=== PATIENT | female | born 1945 | race Caucasian/White ===

== ENCOUNTER → 2017-09-10 | Outpatient (CLI) | payer MEDICARE, OTHER ==
[~2017-09-10] MED LIST: ALBU8.5H3 INH; AMIO200T2 PO; ASPI-781 PO; ATOR10TA65 PO; CITA10SO PO; CLON1TAB3 PO; FER325 PO; FURO-110 PO; GABA300C PO; LEVO500T10 PO; LOVA20TA PO; METF1000 PO; METO-448 PO; OMEP40CA6 PO; ROPI2TAB3 PO; TRAZ100T15 PO
--- NOTE | 2017-09-10 11:16 | RADRPT ---
PROCEDURE: CT Brain without contrast. CLINICAL INDICATION: Headache TECHNIQUE: A CT of the brain was performed on a multidetector CT scanner utilizing axial imaging f rom the skull base through the vertex without IV contrast. Multiplanar reformatted images were made . Images were reviewed on a PACS workstation. The CTDIvol is 43 mGy and the DLP is the 720 mGycm. One or more of the following dose reduction techniques were utilized: 1.) Automated exposure control 2.) Adjustment of the mA +/- kV according to patient's size 3.) Use of iterative reconstruction technique. COMPARISON: None FINDINGS: There is mild to moderate age appropriate diffuse cerebral volume loss with sulcal and ventricular d ilatation. No discrete extra-axial fluid collection or masses present. The ventricles are in the mid line and of normal contour and configuration. There is periventricular white matter disease in both cerebral hemispheres. No associated mass effect is present. There is preservation of normal hidalgo-whi te discrimination. There is no intracranial hemorrhage. The osseous structures are intact. IMPRESSION: No acute abnormality. No intracranial hemorrhage, mass or acute infarct. Age-appropriate atrophy wit h mild white matter disease compatible with chronic small vessel ischemia. .Mahamed Taveras MD, MD Date Time Electronically viewed and signed by .Mahamed Taveras MD, on 09/10/2017 11:15 .A/
== END | disposition home or self-care (01) ==
LOC: C/S 09:07
PROVIDERS: ATTEND Internal Medicine
DX: R51 Headache (principal)
CPT/HCPCS: 70450

== ENCOUNTER 2018-11-06 13:23 | Inpatient (IN) | payer MEDICARE, OTHER ==
[~2018-11-06] VITALS: Ht 173.7 cm; Wt 108.9 kg
[~2018-11-06 13:23] MED LIST changes: -ALBU8.5H3 INH; +ALBU8.5H8 INH; -AMIO200T2 PO; +AMIO200T4 PO; +CLON1TAB13 PO; -CLON1TAB3 PO; -METF1000 PO; +METF100010 PO; +TRAZ-150 PO; -TRAZ100T15 PO
[2018-11-06] MEDS ORDERED: SOD CHLORIDE 0.9% 500 ML IV STA (13:39)
--- NOTE | 2018-11-06 14:56 | ERD ---
ER Documentation Chief Complaint Chief Complaint bib ra from home for syncope, found on ground prone, cannot remember HPI This is a 73-year-old female here for syncope. The patient apparently called EMS for passing out however she has no recollection of calling them. When EMS arrived they found the patient prone on the ground outside. The patient apparently has multiple cameras set up around the property so EMS reviewed the film and said that showed the patient walking outside and it shows her squatting to her knees and then laying on the ground on her stomach, where she apparently was syncopal and passed out for an unknown duration because it cannot tell how long although she was not moving at all. The patient apparently woke up and called 911. The patient has absolutely no recollection of this incident. She denies no physical complaints other than general malaise ROS All systems reviewed and are negative except as per history of present illness. Medications Home Meds Active Scripts Albuterol Sulfate* (Proair HFA*) 8.5 Gm Hfa.aer.ad, 2 PUFF INH Q6 for SHORTNESS OF BREATH, #1 INHALER Prov:ISABEL MORALEZ NP 09/14/16 Levofloxacin* (Levofloxacin*) 500 Mg Tablet, 500 MG PO DAILY for 10 Days, TAB Prov:ISABEL MORALEZ NP 09/14/16 Furosemide* (Lasix*) 20 Mg Tablet, 20 MG PO BID, #60 TAB Prov:DEENA ALEXANDRE MD 08/04/15 Aspirin* (Ecotrin*) 325 Mg Tabec, 325 MG PO DAILY, #30 TAB 2 Refills Prov:DEENA ALEXANDRE MD 08/04/15 Reported Medications Citalopram Hydrobromide (Citalopram) 10 Mg/5 Ml Solution, 20 MG PO DAILY, #300 ML 09/11/16 Amiodarone Hcl* (Amiodarone Hcl*) 200 Mg Tablet, 200 MG PO BID, #60 TAB 09/11/16 Lovastatin* (Lovastatin*) 20 Mg Tablet, 40 MG PO BID, TAB 09/11/16 Trazodone Hcl* (Desyrel*) 100 Mg Tab, 100 MG PO QHS, #30 TAB 09/11/16 Metoprolol Tartrate* (Lopressor*) 25 Mg Tab, 25 MG PO BID, #60 TAB 09/11/16 Ropinirole Hcl* (Ropinirole Hcl*) 2 Mg Tablet, 2 MG PO QPM, TAB 07/30/15 Atorvastatin Calcium (Atorvastatin Calcium) 10 Mg Tab, 20 MG PO HS, TAB 07/30/15 Omeprazole* (Omeprazole*) 40 Mg Capsule.dr, 40 MG PO DAILY, CAP 06/05/14 Metformin Hcl* (Metformin Hcl*) 1,000 Mg Tablet, 1000 MG PO BID, TAB 06/05/14 Clonazepam* (Clonazepam*) 1 Mg Tablet, 1 MG PO HS, TAB 06/05/14 Discontinued Reported Medications Ferrous Sulfate* (Ferrous Sulfate*) 325 Mg Tabec, 325 MG PO TID, TAB 09/11/16 Gabapentin* (Neurontin*) 300 Mg Capsule, 600 MG PO TID, CAP 07/30/15 Allergies Allergies: Coded Allergies: clindamycin (Verified Allergy, Intermediate, Dizzy, confusion, 11/06/18) Penicillins (Verified Allergy, Unknown, 11/06/18) adhesive (Verified Allergy, Unknown, skin blister, severe rash, 11/06/18) ciprofloxacin (Verified Allergy, Unknown, RASH, 11/06/18) codeine (Verified Allergy, Unknown, TONGUE SWELLS, 11/06/18) meperidine (Verified Allergy, Unknown, TONGUE SWELLS, 11/06/18) phenytoin (Verified Allergy, Unknown, TONGUE SWELLS, 11/06/18) povidone-iodine (Verified Allergy, Unknown, 11/06/18) soap (Verified Allergy, Unknown, 11/06/18) PMhx/Soc History of Surgery: Yes (R TKR,bilat mastectomy,hysterectomy, ) Anesthesia Reaction: No Hx Neurological Disorder: No Hx Respiratory Disorders: No Hx Cardiac Disorders: Yes (AFIB; CHOLESTEROL; HTN) Hx Psychiatric Problems: No Hx Miscellaneous Medical Probl: Yes (PNA,obesity,DM type2,anemia,afib,high cholesterol,) Hx Alcohol Use: Yes Hx Substance Use: No Hx Tobacco Use: No Smoking Status: Never smoker FmHx Family History: No coronary disease Physical Exam Vitals Vital Signs Date Temp Pulse Resp B/P (MAP) Pulse Ox O2 O2 Flow FiO2 Time Delivery Rate 11/06/18 98.1 72 19 179/83 100 Room Air 13:30 (115) 11/06/18 98.1 66 19 183/89 100 13:30 (120) Physical Exam Const: Well-developed, well-nourished Head: Atraumatic, normocephalic, small circular abrasion to forehead Eyes: Normal Conjunctiva, PERRLA, EOMI, normal sclera, no nystagmus ENT: Normal External Ears, Nose and Mouth, moist mucus membranes. Neck: Full range of motion. No meningismus, no lymphadenopathy. Resp: Clear to auscultation bilaterally, no wheezing, rhonchi, rales Cardio: Regular rate and rhythm, no murmurs, S1 S2 present Abd: Soft, non tender x 4, non distended. Normal bowel sounds, no guarding or rebound, no pulsitile abdominal masses or bruits Skin: No petechiae or rashes, no ecchymosis , no maculopapular rash Back: No midline or flank tenderness Ext: No cyanosis, or edema, FROM x 4, normal inspection, neurovascularly intact x 4 Neur: Awake and alert, STR 5/5 x 4, sensation intact x 4, no focal findings, cerebellum intact Psych: Normal Mood and Affect Result Diagram: 11/06/18 1357 11/06/18 1357 Results 24 hrs Laboratory Tests Test 11/06/18 13:57 White Blood Count 6.0 10^3/ul Red Blood Count 4.36 10^6/ul Hemoglobin 12.8 g/dl Hematocrit 38.8 % Mean Corpuscular Volume 89.0 fl Mean Corpuscular Hemoglobin 29.4 pg Mean Corpuscular Hemoglobin Concent 33.0 g/dl Red Cell Distribution Width 12.8 % Platelet Count 222 10^3/UL Mean Platelet Volume 9.3 fl Immature Granulocytes % 0.500 % Neutrophils % 59.6 % Lymphocytes % 30.1 % Monocytes % 6.8 % Eosinophils % 2.5 % Basophils % 0.5 % Nucleated Red Blood Cells % 0.0 /100WBC Immature Granulocytes # 0.030 10^3/ul Neutrophils # 3.6 10^3/ul Lymphocytes # 1.8 10^3/ul Monocytes # 0.4 10^3/ul Eosinophils # 0.2 10^3/ul Basophils # 0.0 10^3/ul Nucleated Red Blood Cells # 0.0 10^3/ul Prothrombin Time 12.3 Sec Prothrombin Time Ratio 1.0 INR International Normalized Ratio 0.91 Activated Partial Thromboplast Time 30.6 Sec Sodium Level 141 mmol/L Potassium Level 4.4 mmol/L Chloride Level 101 mmol/L Carbon Dioxide Level 31 mmol/L Anion Gap 9 Blood Urea Nitrogen 13 mg/dl Creatinine 0.75 mg/dl Est Glomerular Filtrat Rate mL/min mL/min Glucose Level 238 mg/dl Calcium Level 9.9 mg/dl Troponin I < 0.012 ng/ml Current Medications Medications Dose Sig/Mary Start Time Status Last (Trade) Ordered Route PRN Stop Time Admin Dose Reason Admin Sodium 500 ml @ Q1H STAT 11/06/18 DC 11/06/18 Chloride 500 mls/hr IV 13:39 14:03 11/06/18 14:38 Procedures/MDM EKG: Rate/Rhythm: Normal sinus rhythm, right bundle branch block, LVH QRS, ST, QT: NORMAL PA, QRS, QT] Impression: Abnormal EKG Ordering MD: MELINDA LEE DO Location: E/R Room/Bed: PROCEDURE: CT Brain without contrast. CLINICAL INDICATION: Altered mental status, fall TECHNIQUE: A CT of the brain was performed on a multi-slice CT scanner utiliz ing axial imaging from the skull base through the vertex without IV contrast. Multiplanar reformatted images were made. Images were reviewed on a PACS workstation. The CTDIvol is 38.6 mGy and the DLP is 634.2 mGycm. One or more of the following dose reduction techniques were used: Automated exposure control. Adjustment of the mA and/or kV according to patient's size. Use of iterative reconstruction technique. DICOM images are available. COMPARISON: 09/10/2017 FINDINGS: The sulcal gyral pattern is unremarkable without evidence of effacement. The hidalgo-white matter differentiation is intact. There are mild to moderate deep white matter ischemic changes. No masses, edema or shift is identified. There are no intraparenchymal or extraaxial fluid collections. The visualized paranasal sinuses and mastoid air cells are well-aerated. The skull base and calvarium are intact. IMPRESSION: 1. No acute intracranial abnormalities are identified. 2. There are mild to moderate deep white matter ischemic changes. RPTAT:AAJJ Toro Steele, Physician Date Time Electronically viewed and signed by Toro Steele Physician on 11/06/2018 14:24 MC/ CC: MELINDA LEE DO [id number] MR #: [id number] DOS: 11/06/18 1339 Ordering MD: MELINDA LEE DO Location: E/R Room/Bed: PROCEDURE: XR Chest. CLINICAL INDICATION: Shortness of breath, syncope TECHNIQUE: A frontal view of the chest was performed. COMPARISON: September 14, 2016 FINDINGS: The cardiomediastinal silhouette is within normal limits. There is a stable left subclavian dual chambered cardiac pacer. The lungs are clear. No signs of pleural fluid or pneumothorax are seen. The osseous structures and soft tissues are unremarkable. IMPRESSION: No evidence for active cardiopulmonary disease. Cardiac pacer. No interval change. RPTAT: EE .Harriet Duvall MD, Date Time Electronically viewed and signed by .Harriet Duvall MD, on 11/06/2018 14:33 .F/ CC: MELINDA LEE DO [id number] Patient's syncopal symptoms are unstable at this time and require inpatient workup. No evidence of PE or dissection at this time but occult ischemia or fatal dysrhythmia cannot be ruled out. Departure Diagnosis: Primary Impression: Syncope Syncope type: unspecified Qualified Codes: R55 - Syncope and collapse Condition: Stable MELINDA LEE DO Nov 06, 2018 14:56
[2018-11-06] MEDS ORDERED: ACETAMINOPHEN 325 MG TAB PO PRN ×2 (16:00→16:30)
[2018-11-06] MEDS ORDERED: ONDANSETRON 4 MG INJ IV PRN ×2 (16:00→16:30)
[2018-11-06] MEDS ORDERED: NACL 0.9% 3 ML SYG IV SCH (16:30)
[2018-11-06] MEDS ORDERED: DOCUSATE SODIUM 100 MG CAP PO PRN (16:30)
[2018-11-06] MEDS ORDERED: MAGNESIUM HYDROXIDE 30ML CUP PO PRN (16:30)
--- NOTE | 2018-11-06 16:35 | HP ---
Date/Time of Note Date/Time of Note DATE: 11/06/18 TIME: 16:26 Assessment/Plan VTE Prophylaxis SCD applied (from Nsg): Yes Pharmacological prophylaxis: apixaban Lines/Catheters IV Catheter Type (from Nrsg): Saline Lock Assessment/Plan Assessment/Plan 1. Acute syncopal episode - Patient does not remember loosing consciousness or calling EMS - CT head negative for acute issues but will need to monitor closely given patient on Eliquis with possible head trauma given presence of forehead abrasion. Will need to repeat CT scan if any change in mentation noted - Will check ECHO and carotids. Pt rate controlled when presented to ED - Cardiology consulted for further recommendations - will continue monitoring vitals 2. Urinary incontinence - will check UA to rule out infectious cause 3. Afib - continue home medications - On eliquis - follows with Dr. Hoffman as outpatient 4. DM - Will check A1c - discussed holding metformin - ISS and accuchecks 5. HTN - continue home medications and adjust as needed 6. non hodgkins lymphoma of skin - per patient, being monitored and not receiving any active treatment 7. h/o breast ca s/p bilateral mastectomy, chemo, and radiation - stable 8. obesity - lifestyle modification 9. Gi ppx - PPI 10. DVT ppx - Eliquis 11. Disposition - Admit to telemetry for syncopal workup Result Diagram: 11/06/18 1357 11/06/18 1357 Results 24hrs Laboratory Tests Test 11/06/18 13:57 White Blood Count 6.0 Red Blood Count 4.36 # Hemoglobin 12.8 # Hematocrit 38.8 # Mean Corpuscular Volume 89.0 Mean Corpuscular Hemoglobin 29.4 Mean Corpuscular Hemoglobin Concent 33.0 Red Cell Distribution Width 12.8 Platelet Count 222 Mean Platelet Volume 9.3 # Immature Granulocytes % 0.500 H Neutrophils % 59.6 Lymphocytes % 30.1 Monocytes % 6.8 Eosinophils % 2.5 Basophils % 0.5 Nucleated Red Blood Cells % 0.0 Immature Granulocytes # 0.030 Neutrophils # 3.6 Lymphocytes # 1.8 Monocytes # 0.4 Eosinophils # 0.2 Basophils # 0.0 Nucleated Red Blood Cells # 0.0 Prothrombin Time 12.3 Prothrombin Time Ratio 1.0 INR International Normalized Ratio 0.91 Activated Partial Thromboplast Time 30.6 Sodium Level 141 Potassium Level 4.4 Chloride Level 101 Carbon Dioxide Level 31 Anion Gap 9 Blood Urea Nitrogen 13 Creatinine 0.75 Est Glomerular Filtrat Rate mL/min Glucose Level 238 H Calcium Level 9.9 Troponin I < 0.012 HPI/ROS Admit Date/Time Admit Date/Time 10/27/18 1600 Hx of Present Illness 73 yo F with PMH atrial fib with pacer, HTN, diabetes mellitus, non hodgkins lymphoma, obesity, and breast cancer s/p b/l mastectomy, chemo, radiation presented to ED after loss of consciousness. Patient states she remembers looking at her sarah bushes and then next thing she knows she was face down with EMS around her. Per patient, EMS was called from her phone but she does not remember events leaving up to episode. Patient has cameras around her house and when the video was reviewed, it showed the patient walking outside, squatting to her knees then laid on ground on her stomach, then syncopized. Patient is complaining of a severe headache, pain in left knee, and ringing in ears. Denies any chest pain, palpitations, dizziness, nausea, vomiting, shortness of breath, abdominal pain, constipation or diarrhea. Does admit to urinary incontinence for the past 2 weeks and has needed to wear depends. Patient is followed by Dr. Hoffman as outpatient and states she sees him every 6 months. ROS All 12 systems reviewed and pertinent positives as per HPI. All others negative. Constitutional: No fatigue, No nausea Eyes: No discharge ENT: No congestion Respiratory: No cough, No shortness of breath, No sputum, No wheezing Cardiovascular: No chest pain, No edema, No lightheadedness, No palpitations Gastrointestinal: No pain, No constipation, No diarrhea, No nausea, No vomiting Genitourinary: other (incontinence) Musculoskeletal: bone/joint pain (left knee pain) Skin: other (abrasion forehead) Neurologic: headache, syncope; No confusion, No dizziness, No focal-weakness Endocrine: no complaints Lymphatic: no complaints Psychological: nl mood/affect Immunologic: no complaints PMH/Family/Social Past Medical History Medical History: diabetes, hypertension, other (atrial fibrillation, breast cancer s/p mastectomy, chemo, radiation, NHL skin) Medications Current Medications Ondansetron HCl (Zofran Inj) 4 mg ER BRIDGE PRN IV NAUSEA AND/OR VOMITING; Sta rt 11/06/18 at 16:00; Stop 11/07/18 at 15:59 Acetaminophen (Tylenol Tab) 650 mg ER BRIDGE PRN PO MILD PAIN(1-3)OR ELEVATED TEMP; Start 11/06/18 at 16:00; Stop 11/07/18 at 15:59 Coded Allergies: clindamycin (Verified Allergy, Intermediate, Dizzy, confusion, 11/06/18) Penicillins (Verified Allergy, Unknown, 11/06/18) adhesive (Verified Allergy, Unknown, skin blister, severe rash, 11/06/18) ciprofloxacin (Verified Allergy, Unknown, RASH, 11/06/18) codeine (Verified Allergy, Unknown, TONGUE SWELLS, 11/06/18) meperidine (Verified Allergy, Unknown, TONGUE SWELLS, 11/06/18) phenytoin (Verified Allergy, Unknown, TONGUE SWELLS, 11/06/18) povidone-iodine (Verified Allergy, Unknown, 11/06/18) soap (Verified Allergy, Unknown, 11/06/18) Past Surgical History Past Surgical Hx: appendectomy, cholecystectomy, other (mastectomy, hysterectomy, L knee, R knee replacement, 13 surgeries left foot) Family History Significant Family History: no pertinent family hx Social History Alcohol Use: none Smoking Status: Never smoker Drug Use: none Exam/Review of Systems Vital Signs Vitals Vital Signs Date Temp Pulse Resp B/P (MAP) Pulse Ox O2 O2 Flow FiO2 Time Delivery Rate 11/06/18 98.1 72 19 179/83 100 Room Air 13:30 (115) Exam Exam General: Patient is a pleasant. currently lying in bed in no acute distress. answering questions appropriately HEENT: Normocephalic. abrasion on forehead The pupils are equal, round and reactive. Extraocular motor are intact Neck: Supple with full range of motion. No rigidity or meningismus Chest: Nontender Lungs: clear bilaterally, nonlabored breathing, no wheezing or rhonchi appreciated Heart: S1, S2, regular rate and rhythm. no murmurs Abdomen: Soft , nontender, nondistended , bowel sounds are present. No guarding no rebound tenderness , No masses or organomegaly. No costovertebral temporal angle mass Extremities: Normal to inspection, no edema no cyanosis. Neurologic: Normal mental status, speech normal, cranial nerves II through XII are intact, motor and sensory are intact, no focal weakness Skin: abrasion left knee Additional Comments Home medications reviewed Imaging: PROCEDURE: XR Chest. CLINICAL INDICATION: Shortness of breath, syncope TECHNIQUE: A frontal view of the chest was performed. COMPARISON: September 14, 2016 FINDINGS: The cardiomediastinal silhouette is within normal limits. There is a stable left subclavian dual chambered cardiac pacer. The lungs are clear. No signs of pleural fluid or pneumothorax are seen. The osseous structures and soft tissues are unremarkable. IMPRESSION: No evidence for active cardiopulmonary disease. Cardiac pacer. No interval change. RPTAT: EE .Harriet Duvall MD, Date Time Electronically viewed and signed by .Harriet Duvall MD, on 11/06/2018 14:33 PROCEDURE: CT Brain without contrast. CLINICAL INDICATION: Altered mental status, fall TECHNIQUE: A CT of the brain was performed on a multi-slice CT scanner [employer] ng axial imaging from the skull base through the vertex without IV contrast. Multiplanar reformatted images were made. Images were reviewed on a PACS workstation. The CTDIvol is 38.6 mGy and the DLP is 634.2 mGycm. One or more of the following dose reduction techniques were used: Automated exposure control. Adjustment of the mA and/or kV according to patient's size. Use of iterative reconstruction technique. DICOM images are available. COMPARISON: 09/10/2017 FINDINGS: The sulcal gyral pattern is unremarkable without evidence of effacement. The hidalgo-white matter differentiation is intact. There are mild to moderate deep white matter ischemic changes. No masses, edema or shift is identified. There are no intraparenchymal or extraaxial fluid collections. The visualized paranasal sinuses and mastoid air cells are well-aerated. The skull base and calvarium are intact. IMPRESSION: 1. No acute intracranial abnormalities are identified. 2. There are mild to moderate deep white matter ischemic changes. RPTAT:AAJJ Toro Steele, Physician Date Time Electronically viewed and signed by Toro Steele, Physician on 11/06/2018 14:24 KERLINE SPIVEY MD Nov 06, 2018 16:35
--- NOTE | 2018-11-06 16:57 | CONDCODE ---
Medicare Criteria-> INP to OBS Patient still in hospital: Yes Medicare Inp->Obs Criteria met: Yes I personally scribed for KERLINE SPIVEY MD ([facility]) on 11/06/18 at 16:57. Electronically submitted by Nicole Piña ([facility]). KERLINE SPIVEY MD Nov 06, 2018 16:57
[2018-11-06] MEDS: HYDROCODONE/APAP (5/325) TAB PO PRN ×2 (16:59→22:18)
[2018-11-06] MEDS ORDERED: DEXTROSE 50% 50 ML SYRINGE IV PRN ×2 (18:00)
[2018-11-06] MEDS ORDERED: GLUCAGON 1 MG INJ IM PRN (18:00)
[2018-11-06] MEDS ORDERED: GLUCOSE GEL 15 GRAM TUBE PO PRN ×2 (18:00)
[2018-11-06] MEDS ORDERED: GLUCOSE GEL 15 GRAM TUBE BUCCAL PRN (18:00)
[2018-11-06] MEDS ORDERED: hydrALAzine 20 MG INJ IV PRN (19:00)
[2018-11-06 20:00] VITALS: PULSE 81
[2018-11-06] MEDS: ALBUTEROL HFA 8 GM INHALER INH SCH ×2 (20:00→20:48)
[2018-11-06 20:12] VITALS: BP 146/67; PULSE 72; RESP 20
[2018-11-06] MEDS: FUROSEMIDE 20 MG TAB PO SCH (20:48)
[2018-11-06] MEDS: INSULIN ASPART [NOVOLOG] 3 ML PEN SC SCH ×2 (21:00→23:30)
[2018-11-06] MEDS: clonAZEPAM 0.5 MG TAB PO SCH (21:20)
[2018-11-06] MEDS: traZODone 100 MG TAB PO SCH (21:21)
[2018-11-06] MEDS: AMIODARONE 200 MG TAB PO SCH (21:21)
[2018-11-06] MEDS: ATORVASTATIN 20 MG TAB PO SCH (21:21)
[2018-11-06] MEDS: METOPROLOL 25 MG TAB PO SCH (21:22)
[2018-11-06] MEDS: APIXABAN 5 MG TABLET PO SCH (21:22)
[2018-11-06] MEDS: ROPINIROLE 1 MG TAB PO SCH (22:18)
[2018-11-06 23:34] VITALS: BP 132/63; PULSE 60; RESP 18
[2018-11-07] VITALS (11 sets, daily range): BP systolic 131–170; BP diastolic 68–95; PULSE 60–89; RESP 16–20
--- NOTE | 2018-11-07 00:57 | CONS ---
DATE OF ADMISSION: 11/06/2018 DATE OF CONSULTATION: 11/06/2018 REASON FOR CONSULTATION: Syncope, assess for cardiac etiology. REQUESTING PHYSICIAN: Dr. Lama from the hospitalist service. HISTORY OF PRESENT ILLNESS: Ms. Rodriguez is a 73-year-old female with a history of atrial fibrillation s tatus post permanent pacemaker, hypertension, diabetes mellitus, non-Hodgkin lymphoma, obesity, breas t CA status post chemo and radiation, who presents status post syncopal episode. Per patient, she wa s in her usual state of health and was outside and went to smell the roses, and the next thing she kn ows she was on the ground and paramedics were asking her questions. The patient denied any prodrome of chest pain, dizziness, palpitations, shortness of breath prior to passing out. Upon arrival, temp erature was 98.1, blood pressure markedly elevated at 183/89, pulse 66, respiratory rate 19, satting 100%. The patient's labs revealed a white count 6.0, a hemoglobin of 12.8, a platelet count of 222. Sodium 141, potassium 4.4, creatinine of 0.7, BUN 13. Troponin negative. Glucose 238. INR 0.91. The patient underwent a chest x-ray revealing no evidence of acute cardiopulmonary abnormalities, and a head CT that revealed no acute intracranial abnormalities, mild to moderate deep white matter isch emic changes. The patient subsequently now waits admit to the floor. PAST MEDICAL HISTORY: As above in the HPI. MEDICATIONS CURRENTLY IN HOSPITAL: 1. Aspirin 325 mg daily. 2. Celexa. 3. Protonix 40 mg daily. 4. ____ b.i.d. 5. Lipitor 20 mg at bedtime. 6. Klonopin 1 mg at bedtime. 7. Metoprolol 25 mg p.o. b.i.d. 8. Trazodone 100 mg at bedtime. 9. Eliquis 5 mg p.o. b.i.d. 10. Albuterol p.r.n. 11. Lasix 20 mg p.o. b.i.d. 12. Insulin sliding scale. 13. Tylenol p.r.n. 14. [place] p.r.n. 15. Colace p.r.n. 16. Zofran p.r.n. 17. Tylenol p.r.n. ALLERGIES: TO CIPROFLOXACIN, CLINDAMYCIN AND MEPERIDINE. SOCIAL HISTORY: No current tobacco, ETOH or illicit drug use. FAMILY HISTORY: No history of sudden cardiac or early CAD. REVIEW OF SYSTEMS: As above in the HPI. CONSTITUTIONAL: No fevers, chills. PULMONARY: No current shortness of breath. CARDIOVASCULAR: Atrial fibrillation. GASTROINTESTINAL: No vomiting. GENITOURINARY: No hematuria. MUSCULOSKELETAL: Degenerative joint disease. PSYCHIATRIC: The patient denies depression. NEUROLOGIC: No documented history of CVA. ENDOCRINE: Diabetes mellitus. PHYSICAL EXAMINATION: VITAL SIGNS: Temperature of 98.1, blood pressure 159/82, pulse 81, respiratory rate 19, satting 100% . GENERAL: The patient is alert, awake, in no acute distress. NECK: JVP approximately 8 to 9 cm of water. CHEST: Fair air movement throughout. HEART: Regular rate and rhythm. Normal S1 and S2. A I/ systolic murmur. Nondisplaced PMI. ABDOMEN: Positive bowel sounds, soft. EXTREMITIES: No significant pitting edema, 1+ pulses bilaterally posterior tibial. LABORATORY DATA: Most recently from today, no further labs for my review at this time. IMAGING STUDIES: As above in the HPI. No further imaging studies for my review at this time. ELECTROCARDIOGRAM: No electrocardiograms for my review at this time. IMPRESSION: 1. Syncope, assess for cardiac etiology. 2. Paroxysmal atrial fibrillation. 3. Permanent pacemaker, assess function. 4. Dyslipidemia. 5. Hypertension. 6. History of breast cancer status post mastectomy and chemotherapy. 7. Possible anxiety by medications. RECOMMENDATIONS: 1. At this time would admit patient to telemetry monitoring to follow rhythm and rate control and ru le out any arrhythmic cause of the patient's fall. 2. We will complete a rule out for myocardial infarction to ensure the patient's constellation of sy mptoms are not the result of acute coronary syndromes, acute myocardial infarction. 3. Check a 2D echo for this patient's ejection fraction, wall motion or any major abnormalities. 4. Continue the patient's baseline beta carmelita and amiodarone in an attempt to maintain sinus rhyth m. 5. Check a baseline EKG now and repeat EKG in the morning to assess for baseline rhythm and then for any changes thereafter. 6. Continue the patient's Eliquis for prevention of thromboembolic complications in the setting of a trial fibrillation. 7. Follow the patient's volume status on Lasix closely. 8. Follow the patient's blood sugars closely on insulin. 9. ____ the patient's aspirin. We will change to baby aspirin to decrease bleeding risk as the liyah ent is already on Eliquis. 10. Additionally check orthostatics to ensure that orthostasis did not contribute to the patient's f all. Thank you for allowing me to take part in the care of this patient. I will continue to follow her ve ry closely with you with recommendations to be made as the patient progresses through her inpatient h ospital course. Dictated By: PRITESH WHITE/GINETTE Conf#: [id number] DID#: [id number] CC: KERLINE LAMA MD;*EndCC*
[2018-11-07] MEDS: ALBUTEROL HFA 8 GM INHALER INH SCH ×4 (02:00→20:00)
[2018-11-07] MEDS: HYDROCODONE/APAP (5/325) TAB PO PRN (04:17)
--- NOTE | 2018-11-07 05:22 | NUR ---
Notified Dr. Hardin hat pt c/o of severe headache 08/18. [place] was given 40min ago with no relieved. Obtain an order for Dilaudid 0.2mg Iv x once. Dr Hardin stated that he will place an order for stat CT of the brain. Previous Ct showed no was negative for acute issues and NIH is 0. No changes on neurological status. Will continue monitor pt closely
[2018-11-07] MEDS ORDERED: HYDROmorphONE 0.5 MG/0.5 ML SYG IV ONE (05:23)
[2018-11-07] MEDS: FUROSEMIDE 20 MG TAB PO SCH ×2 (05:32→18:00)
[2018-11-07] MEDS: PANTOPRAZOLE (EC) 40 MG TAB PO SCH (05:35)
--- NOTE | 2018-11-07 07:13 | NUR ---
EOSS Pt. AAO x4. No s/s of respiratory distress. pt states that she uses oxygen only at night.Continue to monitor headache. CT-brain was negative for acute abnormality but pt still complaining of headache 05/18. Dr. Hardin notified of the results and pt c/o headache/ Dr Hardin placed an order for Excedrin. Endorsed given Reina YANG to administered medication.,
[2018-11-07] MEDS: AMIODARONE 200 MG TAB PO SCH ×2 (08:21→21:02)
[2018-11-07] MEDS: ASPIRIN (EC) 325 MG TAB PO SCH (08:22)
[2018-11-07] MEDS: APIXABAN 5 MG TABLET PO SCH ×2 (08:22→21:02)
[2018-11-07] MEDS: CITALOPRAM 20 MG TAB PO SCH (08:22)
[2018-11-07] MEDS: METOPROLOL 25 MG TAB PO SCH ×2 (08:22→21:03)
[2018-11-07] MEDS ORDERED: ASA/ACETAMINOPHEN/CAFF TAB PO ONE (08:30)
[2018-11-07] MEDS: INSULIN ASPART [NOVOLOG] 3 ML PEN SC SCH ×4 (08:30→21:14)
[2018-11-07] MEDS ORDERED: HYDROmorphONE 0.5 MG/0.5 ML SYG IV STA (09:37)
--- NOTE | 2018-11-07 13:23 | PN ---
Date/Time of Note Date/Time of Note DATE: 11/07/18 TIME: 13:22 Assessment/Plan VTE Prophylaxis Risk score (from Nsg)>0 risk: 5 SCD applied (from Nsg): Yes Pharmacological prophylaxis: apixaban Lines/Catheters IV Catheter Type (from [facility]): Peripheral IV Urinary Cath still in place: No Assessment/Plan Hospital Course SUBJECTIVE: Denies any ringing in the ears. Complains of headache. OBJECTIVE: Physical Exam General: Obese, 71 year-old female lying in bed in no apparent distress. HEENT: Normocephalic, atraumatic. Eyes: Anicteric sclerae, conjunctivae clear. E NT: Nasal septum midline, oral mucosa moist. Neck supple, no JVD noticed. Respiratory: Bilaterally clear breath sounds. No use of accessory muscles of respiration. No adventitious breath sounds. Cardiovascular: S1, S2 heard. Irregularly, irregular rhythm. Abdomen: Soft, nontender, and nondistended. Bowel sounds positive in all 4 quadrants. Genitourinary: Deferred. Extremities: No cyanosis, no clubbing, no edema. Peripheral pulses palpable. Neurologic: Cranial nerves II through XII grossly intact. The patient is awake, alert, and oriented. Skin: Normal skin turgor. No skin rashes. Labs & Vitals per chart ASSESSMENT & PLAN This is a 73-year-old female with comorbidities including hypertension, diabetes mellitus type 2, atrial fibrillation on anticoagulation, dyslipidemia, non- Hodgkin's lymphoma of the skin, history of breast cancer status post bilateral mastectomy, and obesity, who was brought to the emergency room status post syncopal episode at home. The patient was admitted to inpatient setting for further treatment and evaluation. 1. Syncope. -Continue telemetry monitoring. -Brain CT negative. -Pending 2D echocardiogram. -Carotid Doppler study negative for any hemodynamically significant stenosis. -Cardiology evaluation ongoing. 2. Cephalgia. -Etiology unclear. -Continue PRN medications. -Trial of ergot alkaloids. 3. Atrial fibrillation. -Continue amiodarone and Lopressor. -On apixaban for stroke prophylaxis. 4. Diabetes mellitus type 2. -Hemoglobin A1c 8.4. -Continue sliding scale insulin. 5. Hypertension. -Continue antihypertensives. 6. History of breast cancer. -Status post bilateral mastectomy, chemo, and radiation. 7. Non-Hodgkin's lymphoma of the skin. -Not active. 8. Obesity. -BMI 36. -Advised weight reduction. 9. DVT prophylaxis. -Factor Xa inhibitors. 10. Plan. -Continue telemetry monitoring. -Await 2D echocardiogram. -Fioricet for head ache. -PT evaluation. -Replete magnesium. The patient was seen in collaboration with Dr. Lama. Result Diagram: 11/07/18 0553 11/07/18 0553 Results 24hrs Laboratory Tests Test 11/06/18 13:39 11/06/18 13:57 11/06/18 20:20 11/06/18 21:29 Hemoglobin A1c 8.4 H White Blood 6.0 Count Red Blood Count 4.36 # Hemoglobin 12.8 # Hematocrit 38.8 # Mean Corpuscular 89.0 Volume Mean Corpuscular 29.4 Hemoglobin Mean Corpuscular 33.0 Hemoglobin Tammy nt Red Cell 12.8 Distribution Width Platelet Count 222 Mean Platelet 9.3 # Volume Immature 0.500 H Granulocytes % Neutrophils % 59.6 Lymphocytes % 30.1 Monocytes % 6.8 Eosinophils % 2.5 Basophils % 0.5 Nucleated Red 0.0 Blood Cells % Immature 0.030 Granulocytes # Neutrophils # 3.6 Lymphocytes # 1.8 Monocytes # 0.4 Eosinophils # 0.2 Basophils # 0.0 Nucleated Red 0.0 Blood Cells # Prothrombin Time 12.3 Prothrombin Time 1.0 Ratio INR 0.91 International Normalized Ratio Activated 30.6 Partial Thrombop last Time Sodium Level 141 Potassium Level 4.4 Chloride Level 101 Carbon Dioxide 31 Level Anion Gap 9 Blood Urea 13 Nitrogen Creatinine 0.75 Est Glomerular Filtrat Rate mL/min Glucose Level 238 H Calcium Level 9.9 Troponin I < 0.012 < 0.012 Bedside Glucose 195 Test 11/07/18 00:42 11/07/18 05:53 11/07/18 08:15 11/07/18 12:02 Troponin I < 0.012 < 0.012 White Blood 5.9 Count Red Blood Count 4.02 L Hemoglobin 11.9 L Hematocrit 35.3 L Mean Corpuscular 87.8 Volume Mean Corpuscular 29.6 Hemoglobin Mean Corpuscular 33.7 Hemoglobin Tammy nt Red Cell 13.0 Distribution Width Platelet Count 198 Mean Platelet 9.0 Volume Immature 0.500 H Granulocytes % Neutrophils % 63.4 Lymphocytes % 25.9 Monocytes % 7.3 Eosinophils % 2.4 Basophils % 0.5 Nucleated Red 0.0 Blood Cells % Immature 0.030 Granulocytes # Neutrophils # 3.7 Lymphocytes # 1.5 Monocytes # 0.4 Eosinophils # 0.1 Basophils # 0.0 Nucleated Red 0.0 Blood Cells # Sodium Level 139 Potassium Level 4.1 Chloride Level 103 Carbon Dioxide 29 Level Anion Gap 7 Blood Urea 13 Nitrogen Creatinine 0.70 Est Glomerular Filtrat Rate mL/min Glucose Level 202 Calcium Level 9.9 Magnesium Level 1.3 L Thyroid 4.530 Stimulating Hormone (TSH) Bedside Glucose 200 206 Exam/Review of Systems Vital Signs Vitals Vital Signs Date Temp Pulse Resp B/P (MAP) Pulse Ox O2 O2 Flow FiO2 Time Delivery Rate 11/07/18 61 12:08 11/07/18 2.0 12:07 11/07/18 97.6 16 170/73 95 Room Air 11:56 (105) Intake and Output 11/06/18 11/06/18 11/07/18 1515:00 23:00 07:00 IntakeIntake Total 700 ml BalanceBalance 700 ml Medications Medications Current Medications Albuterol (Ventolin Hfa) 2 puff Q6H RESP THERAPY INH Last administered on 11/07/18 08:31; Admin Dose 2 PUFF; Start 11/06/18 at 18:00 Amiodarone HCl (Cordarone) 200 mg BID PO Last administered on 11/07/18 08:21; Admin Dose 200 MG; Start 11/06/18 at 21:00 Aspirin (Ecotrin) 325 mg DAILY PO Last administered on 11/07/18 08:22; Admin Dose 325 MG; Start 11/07/18 at 09:00 Atorvastatin Calcium (Lipitor) 20 mg HS PO Last administered on 11/06/18 21:21; Admin Dose 20 MG; Start 11/06/18 at 21:00 Clonazepam (Klonopin) 1 mg HS PO Last administered on 11/06/18 21:20; Admin Dose 1 MG; Start 11/06/18 at 21:00 Furosemide (Lasix) 20 mg BID DIURETICS PO ; Start 11/06/18 at 18:00 Metoprolol Tartrate (Lopressor) 25 mg BID PO Last administered on 11/07/18 08:22; Admin Dose 25 MG; Start 11/06/18 at 21:00 Ropinirole HCl (Requip) 2 mg QPM PO Last administered on 11/06/18at 22:18; Admin Dose 2 MG; Start 11/06/18 at 21:00 Trazodone HCl (Desyrel) 100 mg QHS PO Last administered on 11/06/18at 21:21; Admin Dose 100 MG; Start 11/06/18 at 21:00 Citalopram Hydrobromide (Celexa) 20 mg DAILY PO Last administered on 11/07/18at 08:22; Admin Dose 20 MG; Start 11/07/18 at 09:00 Pantoprazole (Protonix Tab) 40 mg DAILY@06 PO Last administered on 11/07/18at 05:35; Admin Dose 40 MG; Start 11/07/18 at 06:00 IV Flush (NS 3 ml) 3 ml PER PROTOCOL IV ; Start 11/06/18 at 16:30 Ondansetron HCl (Zofran Inj) 4 mg Q6H PRN IV NAUSEA AND/OR VOMITING; Start 11/06/18 at 16:30 Acetaminophen (Tylenol Tab) 650 mg Q6H PRN PO PAIN LEVEL 1-3 OR FEVER Last administered on 11/06/18at 18:40; Admin Dose 650 MG; Start 11/06/18 at 16:30 Acetaminophen/ Hydrocodone Bitart ([place] (5/325)) 1 tab Q6H PRN PO PAIN LEVEL 4-6 Last administered on 11/07/18at 04:17; Admin Dose 1 TAB; Start 11/06/18 at 16:30 Docusate Sodium (Colace) 100 mg Q12H PRN PO CONSTIPATION; Start 11/06/18 at 16:30 Magnesium Hydroxide (Milk Of Mag) 30 ml DAILY PRN PO CONSTIPATION; Start 11/06/18 at 16:30 Apixaban (Eliquis) 5 mg BID PO Last administered on 11/07/18at 08:22; Admin Dose 5 MG; Start 11/06/18 at 21:00 Insulin Aspart (Novolog Insulin Pen) NOVOLOG *MILD* ALGORITHM WITH MEALS BEDTIME SC Last administered on 11/07/18at 12:14; Admin Dose 2 UNIT; Start at 18:00 Miscellaneous Information 1 ea NOTE XX ; Start 11/06/18 at 18:00 Glucose (Glutose) 15 gm Q15M PRN PO DECREASED GLUCOSE; Start 11/06/18 at 18:00 Glucose (Glutose) 22.5 gm Q15M PRN PO DECREASED GLUCOSE; Start 11/06/18 at 18:00 Dextrose (D50w Syringe) 25 ml Q15M PRN IV DECREASED GLUCOSE; Start 11/06/18 at 18:00 Dextrose (D50w Syringe) 50 ml Q15M PRN IV DECREASED GLUCOSE; Start 11/06/18 at 18:00 Glucagon (Glucagen) 1 mg Q15M PRN IM DECREASED GLUCOSE; Start 11/06/18 at 18:00 Glucose (Glutose) 15 gm Q15M PRN BUCCAL DECREASED GLUCOSE; Start 11/06/18 at 18:00 Hydralazine HCl (Apresoline) 10 mg Q4H PRN IV SBP >170; Start 11/06/18 at 19:00 Magnesium Sulfate 3 gm/Dextrose 106 ml @ 35.333 mls/ hr ONCE ONCE IVPB ; Start 11/07/18 at 13:30; Stop 11/07/18 at 16:29; Status HARJIT CUEVAS NP Nov 07, 2018 13:23
[2018-11-07] MEDS ORDERED: SUMATRIPTAN 6 MG/0.5 ML INJ SC ONE (13:30)
--- NOTE | 2018-11-07 14:12 | CONS ---
Date/Time of Note Date/Time of Note DATE: 11/07/18 TIME: 14:05 Assessment/Plan Assessment/Plan Hospital Course IMPRESSION: 1. Syncope, assess for cardiac etiology.-neg trop x 3 2. Paroxysmal atrial fibrillation. 3. Permanent pacemaker, assess function. 4. Dyslipidemia. 5. Hypertension. 6. History of breast cancer status post mastectomy and chemotherapy. 7. Possible anxiety by medications. 8. Hypomagnesemia Recc: -Tele -will have PPM interogated -Continue asa/eliquis -Continue amio -Continue statin -Continue lasix and follow volume status closley -Continue BB -start ACEI Result Diagram: 11/07/18 0553 11/07/18 0553 Results 24hrs Laboratory Tests Test 11/06/18 20:20 11/06/18 21:29 11/07/18 00:42 11/07/18 05:53 Troponin I < 0.012 < 0.012 < 0.012 Bedside Glucose 195 White Blood 5.9 Count Red Blood Count 4.02 L Hemoglobin 11.9 L Hematocrit 35.3 L Mean Corpuscular 87.8 Volume Mean Corpuscular 29.6 Hemoglobin Mean Corpuscular 33.7 Hemoglobin Tammy nt Red Cell 13.0 Distribution Width Platelet Count 198 Mean Platelet 9.0 Volume Immature 0.500 H Granulocytes % Neutrophils % 63.4 Lymphocytes % 25.9 Monocytes % 7.3 Eosinophils % 2.4 Basophils % 0.5 Nucleated Red 0.0 Blood Cells % Immature 0.030 Granulocytes # Neutrophils # 3.7 Lymphocytes # 1.5 Monocytes # 0.4 Eosinophils # 0.1 Basophils # 0.0 Nucleated Red 0.0 Blood Cells # Sodium Level 139 Potassium Level 4.1 Chloride Level 103 Carbon Dioxide 29 Level Anion Gap 7 Blood Urea 13 Nitrogen Creatinine 0.70 Est Glomerular Filtrat Rate mL/min Glucose Level 202 Calcium Level 9.9 Magnesium Level 1.3 L Thyroid 4.530 Stimulating Hormone (TSH) Test 11/07/18 08:15 11/07/18 12:02 Bedside Glucose 200 206 Consultation Date/Type/Reason Admit Date/Time Nov 06, 2018 at 15:32 Initial Consult Date 11/06/18 Type of Consult cardiology Reason for Consultation syncope Requesting Provider: AHRJIT BARRIENTOS DRIER ATTENDANT Exam/Review of Systems Vital Signs Vitals Vital Signs Date Temp Pulse Resp B/P (MAP) Pulse Ox O2 O2 Flow FiO2 Time Delivery Rate 11/07/18 61 12:08 11/07/18 2.0 12:07 11/07/18 97.6 16 170/73 95 Room Air 11:56 (105) Intake and Output 11/06/18 11/06/18 11/07/18 1414:59 22:59 06:59 IntakeIntake Total 700 ml BalanceBalance 700 ml Exam Review of Systems: CONSTITUTIONAL: No fevers, chills. PULMONARY: No sob CARDIOVASCULAR: No chest pain/palpitations GASTROINTESTINAL: No nausea/vomiting. GENITOURINARY: No hematuria/dysuria. MUSCULOSKELETAL: No myagias/arthalgias. PSYCHIATRIC: The patient denies depression. NEUROLOGIC: No weakness Constitutional: alert, oriented Psych: no complaints Head: normocephalic ENMT: mucosa pink and moist Neck: supple, jvd Respiratory: diminished breath sounds Cardiovascular: regular rate and rhythm Gastrointestinal: soft, non-tender Musculoskeletal: muscle tone Extremities: edema Neurological: other (No focal deficits) Medications Medications Current Medications Albuterol (Ventolin Hfa) 2 puff Q6H RESP THERAPY INH Last administered on 11/07/18at 08:31; Admin Dose 2 PUFF; Start 11/06/18 at 18:00 Amiodarone HCl (Cordarone) 200 mg BID PO Last administered on 11/07/18 08:21; Admin Dose 200 MG; Start 11/06/18 at 21:00 Aspirin (Ecotrin) 325 mg DAILY PO Last administered on 11/07/18 08:22; Admin Dose 325 MG; Start 11/07/18 at 09:00 Atorvastatin Calcium (Lipitor) 20 mg HS PO Last administered on 11/06/18at 21:21; Admin Dose 20 MG; Start 11/06/18 at 21:00 Clonazepam (Klonopin) 1 mg HS PO Last administered on 11/06/18at 21:20; Admin Dose 1 MG; Start 11/06/18 at 21:00 Furosemide (Lasix) 20 mg BID DIURETICS PO ; Start 11/06/18 at 18:00 Metoprolol Tartrate (Lopressor) 25 mg BID PO Last administered on 11/07/18 08:22; Admin Dose 25 MG; Start 11/06/18 at 21:00 Ropinirole HCl (Requip) 2 mg QPM PO Last administered on 11/06/18at 22:18; Admin Dose 2 MG; Start 11/06/18 at 21:00 Trazodone HCl (Desyrel) 100 mg QHS PO Last administered on 11/06/18at 21:21; Admin Dose 100 MG; Start 11/06/18 at 21:00 Citalopram Hydrobromide (Celexa) 20 mg DAILY PO Last administered on 11/07/18at 08:22; Admin Dose 20 MG; Start 11/07/18 at 09:00 Pantoprazole (Protonix Tab) 40 mg DAILY@06 PO Last administered on 11/07/18at 05:35; Admin Dose 40 MG; Start 11/07/18 at 06:00 IV Flush (NS 3 ml) 3 ml PER PROTOCOL IV ; Start 11/06/18 at 16:30 Ondansetron HCl (Zofran Inj) 4 mg Q6H PRN IV NAUSEA AND/OR VOMITING; Start 11/06/18 at 16:30 Acetaminophen (Tylenol Tab) 650 mg Q6H PRN PO PAIN LEVEL 1-3 OR FEVER Last administered on 11/06/18at 18:40; Admin Dose 650 MG; Start 11/06/18 at 16:30 Acetaminophen/ Hydrocodone Bitart ([place] (5/325)) 1 tab Q6H PRN PO PAIN LEVEL 4-6 Last administered on 11/07/18at 04:17; Admin Dose 1 TAB; Start 11/06/18 at 16:30 Docusate Sodium (Colace) 100 mg Q12H PRN PO CONSTIPATION; Start 11/06/18 at 16:30 Magnesium Hydroxide (Milk Of Mag) 30 ml DAILY PRN PO CONSTIPATION; Start 11/06/18 at 16:30 Apixaban (Eliquis) 5 mg BID PO Last administered on 11/07/18at 08:22; Admin Dose 5 MG; Start 11/06/18 at 21:00 Insulin Aspart (Novolog Insulin Pen) NOVOLOG *MILD* ALGORITHM WITH MEALS BEDTIME SC Last administered on 11/07/18at 12:14; Admin Dose 2 UNIT; Start 11/06/18 at 18:00 Miscellaneous Information 1 ea NOTE XX ; Start 11/06/18 at 18:00 Glucose (Glutose) 15 gm Q15M PRN PO DECREASED GLUCOSE; Start 11/06/18 at 18:00 Glucose (Glutose) 22.5 gm Q15M PRN PO DECREASED GLUCOSE; Start 11/06/18 at 18:00 Dextrose (D50w Syringe) 25 ml Q15M PRN IV DECREASED GLUCOSE; Start 11/06/18 at 18:00 Dextrose (D50w Syringe) 50 ml Q15M PRN IV DECREASED GLUCOSE; Start 11/06/18 at 18:00 Glucagon (Glucagen) 1 mg Q15M PRN IM DECREASED GLUCOSE; Start 11/06/18 at 18:00 Glucose (Glutose) 15 gm Q15M PRN BUCCAL DECREASED GLUCOSE; Start 11/06/18 at 18:00 Hydralazine HCl (Apresoline) 10 mg Q4H PRN IV SBP >170; Start 11/06/18 at 19:00 Magnesium Sulfate 3 gm/Dextrose 106 ml @ 35.333 mls/ hr ONCE ONCE IVPB ; Start 11/07/18 at 14:30; Stop 11/07/18 at 17:29 Acetaminophen/ Butalbital/ Caffeine (Fioricet) 1 tab Q6H PRN PO PAIN; Start 11/07/18 at 13:30 PRITESH BEARDEN Nov 07, 2018 14:12
[2018-11-07] MEDS ORDERED: MAGNESIUM SULFATE 3 GM in DEXTROSE 5% 100 ML IVPB ONE (14:30)
--- NOTE | 2018-11-07 15:04 | NUR ---
PT EVALUATION , , y number 1 Evaluation Start Time 14:35 Evaluation Total Time 0 min Subjective Denies pain Pain Scale NUMERIC Pain Intensity 0 (0-10) Patient Stated Goal for Pain Relief 0 (0-10) Pain Level Comment N/A Pre Treatment Vital Signs Stable Yes - BP:131/68 HR:65 Exercise Assessment Label Bilat Lower Extremity Exercise Type Active ROM Additional Exercise Comments AP, KNEE FLEX, EXT, SAQ , LAQ . SLR Supine to Sit Independent Transfer Sit to Stand Ability Contact Guard Assist Bed Mobility Sit to Supine Independent Bed Transfer Ability Contact Guard Assist Chair Transfer Ability Contact Guard Assist Sitting Tolerance 15 min Gait Assist Levels Contact Guard Assist Assistive Devices Front Wheel Walker Ambulation Distance 100 feet Additional Gait Comments SLOW JIL, LT KNEE SUSANNE , LOB X3 WITH FAIR RECOVERY . Weight Bearing Assessment Label Bilat Lower Extremity Weight Bearing Status Full Weight Bearing Static Sitting Balance Good Dynamic Sitting Balance Good Standing Static Balance Good Dynamic Standing Balance Fair plus Additional Balance Assessments Comments W/FWW Safety Judgement Good Post Treatment Pain Intensity 0 0-10 PT Technical Record Comment PT EVALUATION , S: RN CLEARED , PATIENT AGREEABLE . O: PATIENT IS A 73 Y/O FEMALE WITH PMH: OBESITY, A-FIB , DM , HTN , NON HODGKINS LYMPHOMA OF SKIN , H.OF BREAST CANCER S.P PRITI.MASTECTOMY , S/P PRITI. TKA , S/P LT KNEE SURGERIES X 16 ( PER PATIENT'S REPORT) , ADMITTED TO [facility] DUE TP ACUTE SYNCOPAL EPISODE . CT BRAIN REVEALED NO ACUTE INTRACRANIAL ABNORMALITIES ARE IDENTIFIED . PATIENT IS ALERT AND ORIENTED TO SELF , SITUATION , PATIENT IS INF IN BED MOBILITY , CGA FOR SIT TO STAND AND TRANSFERS FROM BED <> BED SIDE COMMODE , GAIT TR W/FWW PERFORMED WITH CGA 100' ,NOTED LT KNEE SUSANNE ( X3 WITH FAIR RECOVERY). PATIENT RETURNED BACK TO BED IND , VS STABLE TOLERATED TREATMENT WELL .NOTIFIED RN PATIENT'S FUNCTIONAL STATUS IN PT SESSION . A: PATIENT LIVES WITH ROOMMATE IN A HOUSE WITH 4 STAIRS TO ENTER , HAS BEEN FUNCTIONAL AND IND.AMBULATOR WITH / WITHOUT AD , PATIENT OWNS FWW AND CANE , PLAN TO RETURN HOME ONCE CLEARED BY MD , PT RECOMMEND OUT PATIENT PHYSICAL THERAPY ONCE DC'D HOME . NO DME NEEDS . P: PT DAILY X5 ( THERA EXE'S , TRANSFER TR, GAIT TR W/FWW , PATIENT EDUCATION AND TRAINING ).
[2018-11-07] MEDS: ACET/BUTAL/CAFF TAB PO PRN (16:05)
--- NOTE | 2018-11-07 16:09 | RADRPT ---
Echocardiogram Report Patient Name: TORO CABRERA Gender: Female Date: 1945 Study Date: 07-Nov-2018 Paper Sealer: Damaris Harp RDCS Location: [id number] Ref. Physician: KERLINE SPIVEY Quality: Adequate Procedures: Transthoracic echocardiogram with complete 2D, M-Mode, and doppler examination. Indications: Syncope. 2D/M Mode Doppler Measurement Value Normal Ranges Measurement Value Normal Ranges LVIDd 2D 4.2 3.5 - 5.6 cm AV Peak Yves 2.0 m/sec LVIDs 2D 2.8 2.1 - 4.1 cm AV Peak PG 17.0 mmHg FS 2D 33.9 % LVOT Peak Yves 0.8 m/sec LVPWd 2D 1.1 0.6 - 1.1 cm LVOT Peak PG 3.0 mmHg IVSd 2D 1.1 0.6 - 1.1 cm MV E Peak Yves 0.6 m/sec IVS/LVPW 2D 1.1 MV A Peak Yves 0.7 m/sec AoR Diam 2D 2.2 2.0 - 3.7 cm MV E/A 0.8 LA/Ao 2D 2 0 - 1 MV Decel Time 232 msec EDV 2D 73.6 cm3 MV E/A 0.8 ESV 2D 21.3 cm3 TV E Peak Yves 0.6 m/sec LA Dimen 2D 3.4 2.3 - 4.0 cm TR Peak Yves 2.5 m/sec TR Peak PG 24.0 mmHg RVSP 24.0 mmHg Findings Left Ventricle: Normal left ventricular systolic function. Normal left ventricular cavity size. Normal left ventricular wall thickness. Ejection fraction is visually estimated at 6065 %. Tissue Doppler/Mitral Doppler indices are consistent with impaired relaxation (Stage I diastolic dysfunction). Right Ventricle: Normal right ventricular size. Normal right ventricular systolic function. Pacemaker right heart. Left Atrium: The left atrium is normal in size. Right Atrium: The right atrium is normal in size. Mitral Valve: Normal appearance of the mitral valve. Trace mitral regurgitation. Aortic Valve: Normal appearance of the aortic valve. Aortic sclerosis without significant stenosis. Trace aortic valve regurgitation. Tricuspid Valve: Normal appearance of the tricuspid valve. There is mild tricuspid regurgitation. Pulmonic Valve: Normal pulmonic valve appearance. No evidence of pulmonic regurgitation. Pericardium: Normal pericardium with no significant pericardial effusion. Aorta: Normal aortic root. IVC: The IVC is not well visualized. Conclusions Normal left ventricular systolic function. Normal left ventricular cavity size. Normal left ventricular wall thickness. Ejection fraction is visually estimated at 60-65 %. Tissue Doppler/Mitral Doppler indices are consistent with impaired relaxation (Stage I diastolic dysfunction). Normal appearance of the mitral valve. Trace mitral regurgitation. Normal appearance of the aortic valve. Aortic sclerosis without significant stenosis. Trace aortic valve regurgitation. Normal appearance of the tricuspid valve. There is mild tricuspid regurgitation. Normal right ventricular size. Normal right ventricular systolic function. Pacemaker right heart. Electronically Signed By: Nash Ortega 07-Nov-2018 16:09:34 -0800 Patient Name: TORO CABRERA Study Date: 07-Nov-2018 [id number]
--- NOTE | 2018-11-07 18:15 | NUR ---
EOSS Patient is alert and oriented to person, place, and time. No shortness of breath noted. Complained of severe headache. Florencio ORTEGA made aware. Received orders for dilaudid IVP, Sumatriptin SQ, and Fiorcet PO PRN. Patient verbalized, "the pain is still there. Still the same pain level.". Florencio ORTEGA made aware. Patient assisted to bedside commode as needed. was seen by PT today. Mg 1.3 and patient was given Mg 3gm IVPB. All needs attended to and met. Kept comfortable. Call light within reach.
[2018-11-07] MEDS: traZODone 100 MG TAB PO SCH (21:02)
[2018-11-07] MEDS: clonAZEPAM 0.5 MG TAB PO SCH (21:02)
[2018-11-07] MEDS: ATORVASTATIN 20 MG TAB PO SCH (21:03)
[2018-11-07] MEDS: ROPINIROLE 1 MG TAB PO SCH (21:03)
[2018-11-08] VITALS (14 sets, daily range): BP systolic 118–198; BP diastolic 48–87; PULSE 66–81; RESP 18–20
--- NOTE | 2018-11-08 00:33 | NUR ---
Pt refuses bed alarm. Explained medication side effect and the risk for fall. Pt verbalize understanding. Encouraged her to call for assistance when she wants to use the commode. Will monitor pt closely
[2018-11-08] MEDS ORDERED: INSULIN ASPART [NOVOLOG] 3 ML PEN SC ONE (02:00)
[2018-11-08] MEDS: ALBUTEROL HFA 8 GM INHALER INH SCH ×3 (02:00→14:00)
[2018-11-08] MEDS: FUROSEMIDE 20 MG TAB PO SCH (05:18)
[2018-11-08] MEDS: PANTOPRAZOLE (EC) 40 MG TAB PO SCH (05:32)
--- NOTE | 2018-11-08 06:29 | NUR ---
EOSS Pt. AAO x4. No s/s of respiratory distress, pain or headache. Pt sleep well last night. No acute changes
[2018-11-08] MEDS: BENAZEPRIL 10 MG TAB PO SCH (08:08)
[2018-11-08] MEDS: CITALOPRAM 20 MG TAB PO SCH (08:08)
[2018-11-08] MEDS: INSULIN ASPART [NOVOLOG] 3 ML PEN SC SCH ×4 (08:08→22:07)
[2018-11-08] MEDS: AMIODARONE 200 MG TAB PO SCH ×2 (08:08→22:10)
[2018-11-08] MEDS: APIXABAN 5 MG TABLET PO SCH ×2 (08:08→21:59)
[2018-11-08] MEDS: METOPROLOL 25 MG TAB PO SCH ×2 (08:09→22:10)
[2018-11-08] MEDS: ASPIRIN (EC) 325 MG TAB PO SCH (08:09)
--- NOTE | 2018-11-08 08:15 | NUR ---
OT EVALUATION , PATIENT IS A 73 Y/O FEMALE WITH PMH: OBESITY, A-FIB , DM , HTN , NON HODGKINS LYMPHOMA OF SKIN , H.OF BREAST CANCER S.P PRITI.MASTECTOMY , S/P PRITI. TKA , S/P LT KNEE SURGERIES X 16 ( PER PATIENT'S REPORT) , ADMITTED TO [facility] DUE TP ACUTE SYNCOPAL EPISODE . CT BRAIN REVEALED NO ACUTE INTRACRANIAL ABNORMALITIES ARE IDENTIFIED . PLOF: PATIENT LIVES WITH ROOMMATE IN A HOUSE WITH 4 STAIRS TO ENTER , HAS BEEN Independent with all FUNCTIONAL ADL's AND IND.AMBULATOR WITH / WITHOUT AD , PATIENT OWNS 4WW, Cane, 3/1 commode, shower chair, and vanity seat. CLOF: RN cleared pt for skilled OT tx. PT received seated at EOB agreeable to tx stating 10/10 pain in left knee. Vitals Stable, AOx4 and BUE AROM WFL/MMT 4/5. Pt performed STS with CGA using FWW requiring verbal cueing for proper hand placement. Pt demonstrated 3/1 commode transfer and functional mob with CGA using FWW. Pt stood at bathroom sink with CGA while performing h/g with supervision. Pt's left knee buckled while standing at bathroom sink . Pt returned to bed with CGA and donned and doffed socks and gown with supervision. Pt left seated at bedside with all needs met. RN notified. Recommendation: Pt will benefit from skilled OT tx 1x daily for 3-5x week to increase safety awareness, balance, endurance and independence with self care. Recommend d/c Home once medically stable. No AE warranted as pt owns all AE needed.
--- NOTE | 2018-11-08 10:08 | NUR ---
PT NOTE Therapy day number 2 Subjective Denies pain Pain Scale NUMERIC Pain Intensity 0 (0-10) Patient Stated Goal for Pain Relief 0 (0-10) Pain Level Comment denies pain pre-tx, L knee pain with AROM Pre Treatment Vital Signs Stable Yes - BP 142/64 mmHg Exercise Assessment Label Bilat Lower Extremity Exercise Type Active ROM Additional Exercise Comments EOB: AP, LAQ, march, scoot EOB, minisquats with FWW, scap depr, trnk contr Exercise Start Time 10:08 Exercise End Time 10:20 Total Exercise Time 12 min (8-127) Transfer Training Start Time 10:20 Supine to Sit Modified Independent Transfer Sit to Stand Ability Contact Guard Assist Bed Mobility Sit to Supine Modified Independent Sitting Tolerance 15 min Additional Mobility Comments trapeze for bed mobil, FWW for STS/transf, L knee aida with WB Transfer Training End Time 10:30 Total Transfer Training Time 10 min (8-127) Gait Training Start Time 10:30 Gait Assist Levels Contact Guard Assist Assistive Devices Front Wheel Walker Ambulation Distance 60 feet Additional Gait Comments decreased cad, L knee buckl x2/ CGA to recover, pain very anxious re falli Gait Training End Time 10:46 Total Gait Training Treatment Time 16 min (8-127) Weight Bearing Assessment Label Bilat Lower Extremity Weight Bearing Status Full Weight Bearing Static Sitting Balance Good Dynamic Sitting Balance Good Standing Static Balance Good Dynamic Standing Balance Fair plus Additional Balance Assessments Comments W/ FWW, L knee buckling ModA to recover Safety Judgement Good Activity Tolerance Fair Post Treatment Pain Intensity 0 0-10 Total Treament Time 38 min (8-127) Total Minutes 38 Total Units 3 PT Technical Record Comment PT NOTE S: Pt agreeable to PT, reports little dizzy, no pain pre-tx. CLeared for PT per TREY Louie O: Pt received semifowler in bed, performed bed mobility, transfer, gait training and thera ex per tech record using FWW and trapeze. Pt Mario for bed mobility, CGA sit to stand, Performed gait tr 30'x2 with 2 standing rest stop, Pt c/o LLE pain/"pulling" with gait, L knee buckling x2 during gait, pt very fearful re falling, CGA + max VC/TC to recover from knee buckling. BTB and positioned for comfort posttx with call light and needs in reach, bed alarm armed, pt in no apparent acute distress. RN updated re pt status A: Pt david tx fairly, limtied by LLE weakness/ buckling P: Cont POC
--- NOTE | 2018-11-08 15:08 | CONS ---
Date/Time of Note Date/Time of Note DATE: 11/08/18 TIME: 15:05 Assessment/Plan Assessment/Plan Hospital Course IMPRESSION: 1. Syncope, assess for cardiac etiology.-neg trop x 3/ NL EF By echo 60%. No sig valve abnl 2. Paroxysmal atrial fibrillation. 3. Permanent pacemaker, assess function.- s/p interrogation with proper fxn/no events/great battery life 4. Dyslipidemia. 5. Hypertension. 6. History of breast cancer status post mastectomy and chemotherapy. 7. Possible anxiety by medications. 8. Hypomagnesemia Recc: -Tele -Continue asa/eliquis -Continue amio -Continue statin -Continue lasix and follow volume status closley -Continue BB/ACEI -ok for d/c from cardiac standpoint Result Diagram: 11/08/18 0555 11/08/18 0555 Results 24hrs Laboratory Tests Test 11/07/18 17:08 11/07/18 21:06 11/08/18 01:39 11/08/18 05:55 Bedside Glucose 223 H 283 H 251 H White Blood 5.5 Count Red Blood Count 4.36 Hemoglobin 12.9 Hematocrit 39.2 Mean Corpuscular 89.9 Volume Mean Corpuscular 29.6 Hemoglobin Mean Corpuscular 32.9 Hemoglobin Tammy nt Red Cell 12.9 Distribution Width Platelet Count 218 Mean Platelet 9.3 Volume Immature 0.500 H Granulocytes % Neutrophils % 70.6 Lymphocytes % 17.9 Monocytes % 8.8 Eosinophils % 1.8 Basophils % 0.4 Nucleated Red 0.0 Blood Cells % Immature 0.030 Granulocytes # Neutrophils # 3.9 Lymphocytes # 1.0 Monocytes # 0.5 Eosinophils # 0.1 Basophils # 0.0 Nucleated Red 0.0 Blood Cells # Sodium Level 138 Potassium Level 4.6 Chloride Level 97 Carbon Dioxide 31 Level Anion Gap 10 Blood Urea 14 Nitrogen Creatinine 0.81 Est Glomerular Filtrat Rate mL/min Glucose Level 232 H Calcium Level 10.1 Phosphorus Level 4.4 Magnesium Level 1.7 Test 11/08/18 08:02 11/08/18 11:56 Bedside Glucose 190 227 H Consultation Date/Type/Reason Admit Date/Time Nov 07, 2018 at 14:01 Initial Consult Date 11/06/18 Type of Consult cardiology Reason for Consultation syncope Requesting Provider: HARJIT BARRINETOS NP Exam/Review of Systems Vital Signs Vitals Vital Signs Date Temp Pulse Resp B/P (MAP) Pulse Ox O2 O2 Flow FiO2 Time Delivery Rate 11/08/18 67 12:07 11/08/18 99.0 20 118/58 100 Room Air 11:23 (78) 11/08/18 21 05:40 11/07/18 2.0 20:07 Intake and Output 11/07/18 11/07/18 11/08/18 1414:59 22:59 06:59 IntakeIntake Total 920 ml 400 ml OutputOutput Total 600 ml BalanceBalance 320 ml 400 ml Exam Review of Systems: CONSTITUTIONAL: No fevers, chills. PULMONARY: No sob CARDIOVASCULAR: No chest pain/palpitations GASTROINTESTINAL: No nausea/vomiting. GENITOURINARY: No hematuria/dysuria. MUSCULOSKELETAL: No myagias/arthalgias. PSYCHIATRIC: The patient denies depression. NEUROLOGIC: No weakness Constitutional: alert Psych: no complaints Head: normocephalic ENMT: mucosa pink and moist Neck: supple, jvd Respiratory: diminished breath sounds Cardiovascular: regular rate and rhythm Gastrointestinal: soft, non-tender Musculoskeletal: muscle tone Extremities: edema (none) Neurological: other (No focal deficits) Medications Medications Current Medications Albuterol (Ventolin Hfa) 2 puff Q6H RESP THERAPY INH Last administered on 11/07/18at 08:31; Admin Dose 2 PUFF; Start 11/06/18 at 18:00 Amiodarone HCl (Cordarone) 200 mg BID PO Last administered on 11/08/18 08:08; Admin Dose 200 MG; Start 11/06/18 at 21:00 Aspirin (Ecotrin) 325 mg DAILY PO Last administered on 11/08/18 08:09; Admin Dose 325 MG; Start 11/07/18 at 09:00 Atorvastatin Calcium (Lipitor) 20 mg HS PO Last administered on 11/07/18 21:03; Admin Dose 20 MG; Start 11/06/18 at 21:00 Clonazepam (Klonopin) 1 mg HS PO Last administered on 11/07/18at 21:02; Admin Dose 1 MG; Start 11/06/18 at 21:00 Furosemide (Lasix) 20 mg BID DIURETICS PO ; Start 11/06/18 at 18:00 Metoprolol Tartrate (Lopressor) 25 mg BID PO Last administered on 11/08/18 08:09; Admin Dose 25 MG; Start 11/06/18 at 21:00 Ropinirole HCl (Requip) 2 mg QPM PO Last administered on 11/07/18 21:03; Admin Dose 2 MG; Start 11/06/18 at 21:00 Trazodone HCl (Desyrel) 100 mg QHS PO Last administered on 11/07/18 21:02; Admin Dose 100 MG; Start 11/06/18 at 21:00 Citalopram Hydrobromide (Celexa) 20 mg DAILY PO Last administered on 11/08/18 08:08; Admin Dose 20 MG; Start 11/07/18 at 09:00 Pantoprazole (Protonix Tab) 40 mg DAILY@06 PO Last administered on 11/08/18 05:32; Admin Dose 40 MG; Start 11/07/18 at 06:00 IV Flush (NS 3 ml) 3 ml PER PROTOCOL IV ; Start 11/06/18 at 16:30 Ondansetron HCl (Zofran Inj) 4 mg Q6H PRN IV NAUSEA AND/OR VOMITING; Start 11/06/18 at 16:30 Acetaminophen (Tylenol Tab) 650 mg Q6H PRN PO PAIN LEVEL 1-3 OR FEVER Last administered on 11/06/18 18:40; Admin Dose 650 MG; Start 11/06/18 at 16:30 Acetaminophen/ Hydrocodone Bitart ([place] (5/325)) 1 tab Q6H PRN PO PAIN LEVEL 4-6 Last administered on 11/07/18 04:17; Admin Dose 1 TAB; Start 11/06/18 at 16:30 Docusate Sodium (Colace) 100 mg Q12H PRN PO CONSTIPATION Last administered on 11/08/18 12:00; Admin Dose 100 MG; Start 11/06/18 at 16:30 Magnesium Hydroxide (Milk Of Mag) 30 ml DAILY PRN PO CONSTIPATION Last administered on 11/08/18 12:00; Admin Dose 30 ML; Start 11/06/18 at 16:30 Apixaban (Eliquis) 5 mg BID PO Last administered on 11/08/18 08:08; Admin Dose 5 MG; Start 11/06/18 at 21:00 Miscellaneous Information 1 ea NOTE XX ; Start 11/06/18 at 18:00 Glucose (Glutose) 15 gm Q15M PRN PO DECREASED GLUCOSE; Start 11/06/18 at 18:00 Glucose (Glutose) 22.5 gm Q15M PRN PO DECREASED GLUCOSE; Start 11/06/18 at 18:00 Dextrose (D50w Syringe) 25 ml Q15M PRN IV DECREASED GLUCOSE; Start 11/06/18 at 18:00 Dextrose (D50w Syringe) 50 ml Q15M PRN IV DECREASED GLUCOSE; Start 11/06/18 at 18:00 Glucagon (Glucagen) 1 mg Q15M PRN IM DECREASED GLUCOSE; Start 11/06/18 at 18:00 Glucose (Glutose) 15 gm Q15M PRN BUCCAL DECREASED GLUCOSE; Start 11/06/18 at 18:00 Hydralazine HCl (Apresoline) 10 mg Q4H PRN IV SBP >170; Start 11/06/18 at 19:00 Acetaminophen/ Butalbital/ Caffeine (Fioricet) 1 tab Q6H PRN PO PAIN Last administered on 11/07/18at 16:05; Admin Dose 1 TAB; Start 11/07/18 at 13:30 Benazepril HCl (Lotensin) 10 mg DAILY PO Last administered on 11/08/18at 08:08; Admin Dose 10 MG; Start 11/08/18 at 09:00 Insulin Aspart (Novolog Insulin Pen) NOVOLOG *MODERATE* ALGORITHM WITH MEALS BEDTIME SC ; Start 11/08/18 at 17:55 PRITESH BEARDEN Nov 08, 2018 15:08
[2018-11-08] MEDS ORDERED: ALBUTEROL HFA 8 GM INHALER INH PRN (16:30)
--- NOTE | 2018-11-08 17:14 | PN ---
Date/Time of Note Date/Time of Note DATE: 11/08/18 TIME: 17:09 Assessment/Plan VTE Prophylaxis Risk score (from Nsg)>0 risk: 4 SCD applied (from Ns): Yes SCD contraindicated: low risk/ambulating Pharmacological prophylaxis: LMWH Lines/Catheters IV Catheter Type (from Nrs): [place] Lock Urinary Cath still in place: No Assessment/Plan Hospital Course A/P 1. Syncope, stable no further events, check orthostatic if possible 2. Pacemaker status, status post interrogation. No events 3. Chronic A. fib, continue rate control, started amnio. Eliquis if no side effects 4. Incontinence, rule out UTI. DC Lasix 5. Chronic generalized anxiety disorder, recommend she cut back on benzos 6. Nonadherence to walker and medical bracelet; PT, HSE 7. Chronic DJD mostly left knee 8. Headaches/cephalgia vs withdrawal headache. no warning signs/ signs of meningitis or acute intracranial process. improved, treat bp, but dc prn hydralazine 9. Diabetes type 2 10. History of non-Hodgkin's lymphoma 11. Breast cancer status post surgery radiation chemo. Subjective: Less headache. No loss of speech vision focal deficits nausea vomiting incontinence or light or sound sensitivity. Positive constipation. No chest pain palpitations Objective: Vital signs stable sinus rhythm Physical exam No pallor adenopathy JVD droop Regular no r/g;+ sm, Clear Bs present nontender nondistended no r/r/g No edema Neuro: Grossly nonfocal Result Diagram: 11/08/18 0555 11/08/18 0555 Results 24hrs Laboratory Tests Test 11/07/18 21:06 11/08/18 01:39 11/08/18 05:55 11/08/18 08:02 Bedside Glucose 283 H 251 H 190 White Blood 5.5 Count Red Blood Count 4.36 Hemoglobin 12.9 Hematocrit 39.2 Mean Corpuscular 89.9 Volume Mean Corpuscular 29.6 Hemoglobin Mean Corpuscular 32.9 Hemoglobin Tammy nt Red Cell 12.9 Distribution Width Platelet Count 218 Mean Platelet 9.3 Volume Immature 0.500 H Granulocytes % Neutrophils % 70.6 Lymphocytes % 17.9 Monocytes % 8.8 Eosinophils % 1.8 Basophils % 0.4 Nucleated Red 0.0 Blood Cells % Immature 0.030 Granulocytes # Neutrophils # 3.9 Lymphocytes # 1.0 Monocytes # 0.5 Eosinophils # 0.1 Basophils # 0.0 Nucleated Red 0.0 Blood Cells # Sodium Level 138 Potassium Level 4.6 Chloride Level 97 Carbon Dioxide 31 Level Anion Gap 10 Blood Urea 14 Nitrogen Creatinine 0.81 Est Glomerular Filtrat Rate mL/min Glucose Level 232 H Calcium Level 10.1 Phosphorus Level 4.4 Magnesium Level 1.7 Test 11/08/18 11:56 Bedside Glucose 227 H Exam/Review of Systems Vital Signs Vitals Vital Signs Date Temp Pulse Resp B/P (MAP) Pulse Ox O2 O2 Flow FiO2 Time Delivery Rate 11/08/18 18 149/54 16:29 (85) 11/08/18 68 16:09 11/08/18 98.8 100 Room Air 15:38 11/08/18 21 05:40 11/07/18 2.0 20:07 Intake and Output 11/07/18 11/07/18 11/08/18 1515:00 23:00 07:00 IntakeIntake Total 920 ml 400 ml OutputOutput Total 600 ml BalanceBalance 320 ml 400 ml Medications Medications Current Medications Amiodarone HCl (Cordarone) 200 mg BID PO Last administered on 11/08/18 08:08; Admin Dose 200 MG; Start 11/06/18 at 21:00 Aspirin (Ecotrin) 325 mg DAILY PO Last administered on 11/08/18 08:09; Admin Dose 325 MG; Start 11/07/18 at 09:00 Atorvastatin Calcium (Lipitor) 20 mg HS PO Last administered on 11/07/18at 21:03; Admin Dose 20 MG; Start 11/06/18 at 21:00 Metoprolol Tartrate (Lopressor) 25 mg BID PO Last administered on 11/08/18 08:09; Admin Dose 25 MG; Start 11/06/18 at 21:00 Ropinirole HCl (Requip) 2 mg QPM PO Last administered on 11/07/18 21:03; Admin Dose 2 MG; Start 11/06/18 at 21:00 Citalopram Hydrobromide (Celexa) 20 mg DAILY PO Last administered on 11/08/18 08:08; Admin Dose 20 MG; Start 11/07/18 at 09:00 IV Flush (NS 3 ml) 3 ml PER PROTOCOL IV ; Start 11/06/18 at 16:30 Ondansetron HCl (Zofran Inj) 4 mg Q6H PRN IV NAUSEA AND/OR VOMITING; Start 11/06/18 at 16:30 Acetaminophen (Tylenol Tab) 650 mg Q6H PRN PO PAIN LEVEL 1-3 OR FEVER Last administered on 11/06/18at 18:40; Admin Dose 650 MG; Start 11/06/18 at 16:30 Acetaminophen/ Hydrocodone Bitart ([place] (5/325)) 1 tab Q6H PRN PO PAIN LEVEL 4-6 Last administered on 11/07/18at 04:17; Admin Dose 1 TAB; Start 11/06/18 at 16:30 Docusate Sodium (Colace) 100 mg Q12H PRN PO CONSTIPATION Last administered on 11/08/18at 12:00; Admin Dose 100 MG; Start 11/06/18 at 16:30 Magnesium Hydroxide (Milk Of Mag) 30 ml DAILY PRN PO CONSTIPATION Last adm inistered on 11/08/18at 12:00; Admin Dose 30 ML; Start 11/06/18 at 16:30 Apixaban (Eliquis) 5 mg BID PO Last administered on 11/08/18 08:08; Admin Dose 5 MG; Start 11/06/18 at 21:00 Miscellaneous Information 1 ea NOTE XX ; Start 11/06/18 at 18:00 Glucose (Glutose) 15 gm Q15M PRN PO DECREASED GLUCOSE; Start 11/06/18 at 18:00 Glucose (Glutose) 22.5 gm Q15M PRN PO DECREASED GLUCOSE; Start 11/06/18 at 18:00 Dextrose (D50w Syringe) 25 ml Q15M PRN IV DECREASED GLUCOSE; Start 11/06/18 at 18:00 Dextrose (D50w Syringe) 50 ml Q15M PRN IV DECREASED GLUCOSE; Start 11/06/18 at 18:00 Glucagon (Glucagen) 1 mg Q15M PRN IM DECREASED GLUCOSE; Start 11/06/18 at 18:00 Glucose (Glutose) 15 gm Q15M PRN BUCCAL DECREASED GLUCOSE; Start 11/06/18 at 18:00 Acetaminophen/ Butalbital/ Caffeine (Fioricet) 1 tab Q6H PRN PO PAIN Last administered on 11/07/18at 16:05; Admin Dose 1 TAB; Start 11/07/18 at 13:30 Benazepril HCl (Lotensin) 10 mg DAILY PO Last administered on 11/08/18at 08:08; Admin Dose 10 MG; Start 11/08/18 at 09:00 Insulin Aspart (Novolog Insulin Pen) NOVOLOG *MODERATE* ALGORITHM WITH MEALS BEDTIME SC ; Start 11/08/18 at 17:55 Albuterol (Ventolin Hfa) 2 puff Q6H RESP THERAPY PRN INH SHORTNESS OF BREATH; Start 11/08/18 at 16:30 Clonidine (Catapres) 0.1 mg Q4H PRN PO ELEVATED SYSTOLIC BP; Start 11/08/18 at 16:30 KERWIN SAVAGE MD Nov 08, 2018 17:14
--- NOTE | 2018-11-08 18:40 | NUR ---
EOSS Patient stable, denies pain, BP elevated this morning at 198/87 but after receiving cardiac medications blood pressure was controlled with last result 149/54, blood glucose elevated in the 200s and Dr. Parson increased the patient's insulin to a moderate algorithm, ambulated with walker with PT/OT, left knee still buckling and patient is fearful of falling, fall precautions initiated but patient does refuse the bed alarm, tolerating diet well, and patient was able to have a bowel movement after administering colace and MOM x1, PPM interrogated and functioning normally, will endorse care to welder 2nd shift.
[2018-11-08] MEDS: ROPINIROLE 1 MG TAB PO SCH (21:59)
[2018-11-08] MEDS: ATORVASTATIN 20 MG TAB PO SCH (21:59)
[2018-11-08] MEDS: ACET/BUTAL/CAFF TAB PO PRN (21:59)
[2018-11-09] VITALS (13 sets, daily range): BP systolic 115–160; BP diastolic 57–74; PULSE 60–83; RESP 18–20
--- NOTE | 2018-11-09 06:15 | NUR ---
EOSS: Pt resting comfortably in stable condition. Pt a/o X4 and on room air. VS stable. Will endorse to oncoming RN.
[2018-11-09] MEDS: INSULIN ASPART [NOVOLOG] 3 ML PEN SC SCH ×4 (08:43→20:16)
[2018-11-09] MEDS: ASPIRIN (EC) 325 MG TAB PO SCH (09:02)
[2018-11-09] MEDS: APIXABAN 5 MG TABLET PO SCH ×2 (09:03→20:07)
[2018-11-09] MEDS: HYDROCODONE/APAP (5/325) TAB PO PRN (09:03)
[2018-11-09] MEDS: CITALOPRAM 20 MG TAB PO SCH (09:03)
[2018-11-09] MEDS: METOPROLOL 25 MG TAB PO SCH ×2 (09:04→20:08)
[2018-11-09] MEDS: BENAZEPRIL 10 MG TAB PO SCH (09:04)
[2018-11-09] MEDS: AMIODARONE 200 MG TAB PO SCH ×2 (09:05→20:07)
[2018-11-09] MEDS: ACET/BUTAL/CAFF TAB PO PRN (10:32)
--- NOTE | 2018-11-09 12:25 | RADRPT ---
Vent Rate: 65 bpm RR Interval: 0 msec MA Interval: 176 msec QRS Duration: 146 msec QT Interval: 460 msec QTC Interval: 478 msec P-R-T [place]: 24 - -7 - -16 degrees Normal sinus rhythm Right bundle branch block Abnormal ECG Electronically Signed By: Georges Booth [id number]
--- NOTE | 2018-11-09 14:05 | CONS ---
Date/Time of Note Date/Time of Note DATE: 11/09/18 TIME: 14:04 Assessment/Plan Assessment/Plan Hospital Course IMPRESSION: 1. Syncope, assess for cardiac etiology.-neg trop x 3/ NL EF By echo 60%. No sig valve abnl 2. Paroxysmal atrial fibrillation. 3. Permanent pacemaker, assess function.- s/p interrogation with proper fxn/no events/great battery life 4. Dyslipidemia. 5. Hypertension. 6. History of breast cancer status post mastectomy and chemotherapy. 7. Possible anxiety by medications. 8. Hypomagnesemia Recc: -Tele -Continue asa/eliquis -Continue amio -Continue statin -Continue lasix and follow volume status closely -Continue BB/ACEI with slight increase to improve overall BP -Follow BS cl;osely -ok for d/c from cardiac standpoint Result Diagram: 11/09/18 0535 11/09/18 0535 Results 24hrs Laboratory Tests Test 11/08/18 17:22 11/08/18 22:04 11/09/18 03:00 11/09/18 05:35 Bedside Glucose 211 264 H 230 H White Blood Count 7.1 # Red Blood Count 3.98 L Hemoglobin 11.9 L Hematocrit 35.2 L Mean Corpuscular 88.4 Volume Mean Corpuscular 29.9 Hemoglobin Mean Corpuscular 33.8 Hemoglobin Concent Red Cell 13.2 Distribution Width Platelet Count 177 Mean Platelet Volume 9.1 Immature 0.600 H Granulocytes % Neutrophils % 71.9 Lymphocytes % 13.9 L Monocytes % 12.2 H Eosinophils % 1.0 Basophils % 0.4 Nucleated Red Blood 0.0 Cells % Immature 0.040 H Granulocytes # Neutrophils # 5.1 Lymphocytes # 1.0 Monocytes # 0.9 Eosinophils # 0.1 Basophils # 0.0 Nucleated Red Blood 0.0 Cells # Sodium Level 139 Potassium Level 5.0 Chloride Level 97 Carbon Dioxide Level 35 H Anion Gap 7 Blood Urea Nitrogen 15 Creatinine 0.91 Est Glomerular Filtrat Rate mL/min Glucose Level 244 H Calcium Level 9.7 Magnesium Level 1.7 Total Bilirubin 0.2 Direct Bilirubin 0.00 Indirect Bilirubin 0.2 Aspartate Amino 14 L Transf (AST/SGOT) Alanine 23 Aminotransferase (AL T/SGPT) Alkaline Phosphatase 96 Total Protein 6.4 Albumin 3.9 Globulin 2.50 Albumin/Globulin 1.56 Ratio Vitamin B12 Level 245 Thyroid Stimulating 2.070 Hormone (TSH) Test 11/09/18 08:23 11/09/18 12:03 Bedside Glucose 230 H 274 H Consultation Date/Type/Reason Admit Date/Time Nov 07, 2018 at 14:01 Initial Consult Date 11/06/18 Type of Consult cardiology Reason for Consultation syncope Requesting Provider: HARJIT BARRIENTOS [employer] Exam/Review of Systems Vital Signs Vitals Vital Signs Date Temp Pulse Resp B/P (MAP) Pulse Ox O2 O2 Flow FiO2 Time Delivery Rate 11/09/18 60 12:58 11/09/18 98.7 18 115/57 94 12:18 (76) 11/08/18 Room Air 20:00 11/08/18 21 05:40 11/07/18 2.0 20:07 Intake and Output 11/08/18 11/08/18 11/09/18 1515:00 23:00 07:00 IntakeIntake Total 900 ml 500 ml OutputOutput Total 600 ml BalanceBalance 300 ml 500 ml Exam Review of Systems: CONSTITUTIONAL: No fevers, chills. PULMONARY: No sob CARDIOVASCULAR: No chest pain/palpitations GASTROINTESTINAL: No nausea/vomiting. GENITOURINARY: No hematuria/dysuria. MUSCULOSKELETAL: No myagias/arthalgias. PSYCHIATRIC: The patient denies depression. NEUROLOGIC: No weakness Constitutional: alert Psych: no complaints Head: normocephalic ENMT: mucosa pink and moist Respiratory: clear to auscultation Cardiovascular: regular rate and rhythm Gastrointestinal: soft, non-tender Musculoskeletal: muscle tone (normal) Extremities: edema Neurological: other (no focal deficits) Medications Medications Current Medications Amiodarone HCl (Cordarone) 200 mg BID PO Last administered on 11/09/18at 09:05; Admin Dose 200 MG; Start 11/06/18 at 21:00 Aspirin (Ecotrin) 325 mg DAILY PO Last administered on 11/09/18at 09:02; Admin Dose 325 MG; Start 11/07/18 at 09:00 Atorvastatin Calcium (Lipitor) 20 mg HS PO Last administered on 11/08/18at 21:59; Admin Dose 20 MG; Start 11/06/18 at 21:00 Metoprolol Tartrate (Lopressor) 25 mg BID PO Last administered on 11/09/18 09:04; Admin Dose 25 MG; Start 11/06/18 at 21:00 Ropinirole HCl (Requip) 2 mg QPM PO Last administered on 11/08/18at 21:59; Admin Dose 2 MG; Start 11/06/18 at 21:00 Citalopram Hydrobromide (Celexa) 20 mg DAILY PO Last administered on 11/09/18 09:03; Admin Dose 20 MG; Start 11/07/18 at 09:00 IV Flush (NS 3 ml) 3 ml PER PROTOCOL IV ; Start 11/06/18 at 16:30 Ondansetron HCl (Zofran Inj) 4 mg Q6H PRN IV NAUSEA AND/OR VOMITING; Start 11/06/18 at 16:30 Acetaminophen (Tylenol Tab) 650 mg Q6H PRN PO PAIN LEVEL 1-3 OR FEVER Last administered on 11/06/18at 18:40; Admin Dose 650 MG; Start 11/06/18 at 16:30 Acetaminophen/ Hydrocodone Bitart ([place] (5/325)) 1 tab Q6H PRN PO PAIN LEVEL 4-6 Last administered on 11/09/18 09:03; Admin Dose 1 TAB; Start 11/06/18 at 16:30 Docusate Sodium (Colace) 100 mg Q12H PRN PO CONSTIPATION Last administered on 11/08/18 12:00; Admin Dose 100 MG; Start 11/06/18 at 16:30 Magnesium Hydroxide (Milk Of Mag) 30 ml DAILY PRN PO CONSTIPATION Last administ ered on 11/08/18at 12:00; Admin Dose 30 ML; Start 11/06/18 at 16:30 Apixaban (Eliquis) 5 mg BID PO Last administered on 11/09/18 09:03; Admin Dose 5 MG; Start 11/06/18 at 21:00 Miscellaneous Information 1 ea NOTE XX ; Start 11/06/18 at 18:00 Glucose (Glutose) 15 gm Q15M PRN PO DECREASED GLUCOSE; Start 11/06/18 at 18:00 Glucose (Glutose) 22.5 gm Q15M PRN PO DECREASED GLUCOSE; Start 11/06/18 at 18:00 Dextrose (D50w Syringe) 25 ml Q15M PRN IV DECREASED GLUCOSE; Start 11/06/18 at 18:00 Dextrose (D50w Syringe) 50 ml Q15M PRN IV DECREASED GLUCOSE; Start 11/06/18 at 18:00 Glucagon (Glucagen) 1 mg Q15M PRN IM DECREASED GLUCOSE; Start 11/06/18 at 18:00 Glucose (Glutose) 15 gm Q15M PRN BUCCAL DECREASED GLUCOSE; Start 11/06/18 at 18:00 Acetaminophen/ Butalbital/ Caffeine (Fioricet) 1 tab Q6H PRN PO PAIN Last administered on 11/09/18 10:32; Admin Dose 1 TAB; Start 11/07/18 at 13:30 Benazepril HCl (Lotensin) 10 mg DAILY PO Last administered on 11/09/18 09:04; Admin Dose 10 MG; Start 11/08/18 at 09:00 Insulin Aspart (Novolog Insulin Pen) NOVOLOG *MODERATE* ALGORITHM WITH MEALS BEDTIME SC Last administered on 11/09/18 12:17; Admin Dose 8 UNIT; Start 11/08/18 at 17:55 Albuterol (Ventolin Hfa) 2 puff Q6H RESP THERAPY PRN INH SHORTNESS OF BREATH; Start 11/08/18 at 16:30 Clonidine (Catapres) 0.1 mg Q4H PRN PO ELEVATED SYSTOLIC BP; Start 11/08/18 at 16:30 PRITESH BEARDEN Nov 09, 2018 14:05
--- NOTE | 2018-11-09 16:38 | DS ---
Date/Time of Note Date/Time of Note DATE: 11/09/18 TIME: 16:34 Discharge Summary Admission/Discharge Info Admit Date/Time Nov 07, 2018 at 14:01 Discharge Date/Time Patient Condition: Good Procedures Carotid ultrasound IMPRESSION: 1. No evidence for hemodynamically significant carotid artery stenosis - validated velocity measurements with angiographic measurements, velocity criteria are extrapolated from diameter data as defined by the Society of Radiologists in Ultrasound Consensus Conference Radiology 2003; 229; 340 - 346. This study does indirectly reference the measurement of the distal ICA diameter as the denominator for stenosis measurement. 2. Normal antegrade flow in the vertebral arteries bilaterally. .Pranav Cervantes MD, CT Brain without contrast #2 CLINICAL INDICATION: Severe headache TECHNIQUE: Axial images from the skull base through the vertex without IV contrast. Multiplanar reformatted images were made. Images were reviewed on a PACS workstation. The CTDIvol is37.48 mGymGy and the DLP is634.23 mGy.cm mGycm. One or more of the following dose reduction techniques were used: automated exposure control, adjustment of the mA and/or kV according to patient size, or use of iterative reconstruction technique. DICOM images are available. COMPARISON: CT BRAIN 11/06/2018 FINDINGS: There is atrophy and probable chronic microvascular ischemic change. There is no evidence for acute territorial infarction or intracranial hemorrhage. No mass or midline shift is seen. No intra or extra-axial fluid collection is seen. Slight intracranial vascular calcification. Prior bilateral ocular lens surgery. . The visualized paranasal sinuses and mastoids are clear. IMPRESSION: Atrophy and chronic microvascular ischemic changes. No definite acute abnormality. Becky Marie Physician Date Time Hx of Present Illness 73-year-old female admitted with syncope. Hospital Course 73-year-old female admitted with syncope. Patient was outside in her yard and fell attending to her garden. No prodrome. Patient does not recall but apparently she made the call to 911. No witnessed tongue bite or incontinence or postictal state. No focal deficits or strokelike symptoms seen. Patient has had no further episodes in the hospital. Denies skipping meals/hypoglycemia etc. She is not adherent to her walker. She may need a medical alert bracelet. She was counseled regarding these issues/concerns and options. If she was also advised that syncope can recur, however management at this time will not change to a great extent. Pacemaker was interrogated with and there were no events recorded. Patient was seen by cardiology. Unable to check orthostatics patient is presently stable and fit for discharge. Patient did had urinary issues and I will DC Lasix for now. Would recommend she try to avoid benzos. Patient did sustain trivial injuries. 2 CTs of brain does not show any acute process. Her headaches have improved. A/P 1. Syncope, stable no further events, discharge 2. Pacemaker status, status post interrogation. No events 3. Chronic A. fib, continue rate control, started amnio. Eliquis if no side effects 4. Incontinence, rule out UTI. DC Lasix 5. Chronic generalized anxiety disorder, recommend she cut back on benzos 6. Nonadherence to walker and medical bracelet; PT, HSE 7. Chronic DJD mostly left knee 8. Headaches/cephalgia vs withdrawal headache. no warning signs/ signs of meningitis or acute intracranial process. improved, treat bp, but dc prn hydralazine 9. Diabetes type 2 10. History of non-Hodgkin's lymphoma 11. Breast cancer status post surgery radiation chemo. Subjective: 11/08 less headache. No loss of speech vision focal deficits nausea vomiting incontinence or light or sound sensitivity. Positive constipation. No chest pain palpitations /1: No events Objective: Vital signs stable sinus rhythm Physical exam No pallor adenopathy JVD droop Regular no r/g;+ sm, Clear Bs present nontender nondistended no r/r/g No edema Neuro: Grossly nonfocal Home Meds Active Scripts Albuterol Sulfate* (Proair HFA*) 8.5 Gm Hfa.aer.ad, 2 PUFF INH Q6 for SHORTNESS OF BREATH, #1 INHALER Prov:MORALEZ,ISABEL V. ART GILDER 09/14/16 Levofloxacin* (Levofloxacin*) 500 Mg Tablet, 500 MG PO DAILY for 10 Days, TAB Prov:MORALEZ,ISABEL V. ART GILDER 09/14/16 Furosemide* (Lasix*) 20 Mg Tablet, 20 MG PO BID, #60 TAB Prov:DEENA ALEXANDRE MD 08/04/15 Aspirin* (Ecotrin*) 325 Mg Tabec, 325 MG PO DAILY, #30 TAB 2 Refills Prov:DEENA ALEXANDRE MD 08/04/15 Reported Medications Citalopram Hydrobromide (Citalopram) 10 Mg/5 Ml Solution, 20 MG PO DAILY, #300 ML 09/11/16 Amiodarone Hcl* (Amiodarone Hcl*) 200 Mg Tablet, 200 MG PO BID, #60 TAB 09/11/16 Lovastatin* (Lovastatin*) 20 Mg Tablet, 40 MG PO BID, TAB 09/11/16 Trazodone Hcl* (Desyrel*) 100 Mg Tab, 100 MG PO QHS, #30 TAB 09/11/16 Metoprolol Tartrate* (Lopressor*) 25 Mg Tab, 25 MG PO BID, #60 TAB 09/11/16 Ropinirole Hcl* (Ropinirole Hcl*) 2 Mg Tablet, 2 MG PO QPM, TAB 07/30/15 Atorvastatin Calcium (Atorvastatin Calcium) 10 Mg Tab, 20 MG PO HS, TAB 07/30/15 Omeprazole* (Omeprazole*) 40 Mg Capsule.dr, 40 MG PO DAILY, CAP 06/05/14 Metformin Hcl* (Metformin Hcl*) 1,000 Mg Tablet, 1000 MG PO BID, TAB 06/05/14 Clonazepam* (Clonazepam*) 1 Mg Tablet, 1 MG PO HS, TAB 06/05/14 Discontinued Reported Medications Ferrous Sulfate* (Ferrous Sulfate*) 325 Mg Tabec, 325 MG PO TID, TAB 09/11/16 Gabapentin* (Neurontin*) 300 Mg Capsule, 600 MG PO TID, CAP 07/30/15 Follow-up Plan Appointment primary 1 week Primary Care Provider Manas Hernandez MD Time spent on discharge: > 30 minutes Pending Labs Laboratory Tests Test 11/08/18 17:22 11/08/18 22:04 11/09/18 03:00 11/09/18 05:35 Bedside 211 264 230 Glucose mg/dL (70-220) mg/dL (70-220) mg/dL (70-220) White Blood 7.1 Count 10^3/ul (4.8-1 0.8) Red Blood 3.98 Count 10^6/ul (4.20- 5.40) Hemoglobin 11.9 g/dl (12.0-16. 0) Hematocrit 35.2 % (37.0-47.0) Mean 88.4 Corpuscular fl (82.0-101.0 Volume ) Mean 29.9 Corpuscular pg (29.0-33.0) Hemoglobin Mean 33.8 Corpuscular g/dl (32.0-37. Hemoglobin Conc 0) ent Red Cell 13.2 Distribution % (11.5-14.5) Width Platelet Count 177 10^3/UL (140-4 15) Mean Platelet 9.1 Volume fl (7.4-10.4) Immature 0.600 Granulocytes % % (0.001-0.429 ) Neutrophils % 71.9 % (39.0-77.0) Lymphocytes % 13.9 % (15.0-51.0) Monocytes % 12.2 % (0.0-11.0) Eosinophils % 1.0 % (0.0-7.0) Basophils % 0.4 % (0.0-2.0) Nucleated Red 0.0 Blood Cells % /100WBC (0.0-0 .0) Immature 0.040 Granulocytes # 10^3/ul (0.0-0 .031) Neutrophils # 5.1 10^3/ul (1.6-7 .5) Lymphocytes # 1.0 10^3/ul (0.8-2 .9) Monocytes # 0.9 10^3/ul (0.3-0 .9) Eosinophils # 0.1 10^3/ul (0.0-0 .5) Basophils # 0.0 10^3/ul (0.0-0 .1) Nucleated Red 0.0 Blood Cells # 10^3/ul (0.0-0 .0) Sodium Level 139 mmol/L (135-14 4) Potassium 5.0 Level mmol/L (3.5-5. 1) Chloride Level 97 mmol/L (97-110 ) Carbon Dioxide 35 Level mmol/L (21-31) Anion Gap 7 (5-13) Blood Urea 15 Nitrogen mg/dl (7-20) Creatinine 0.91 mg/dl (0.44-1. 00) Est Glomerular mL/min (>60) Filtrat Rate mL/min Glucose Level 244 mg/dl (70-220) Calcium Level 9.7 mg/dl (8.4-10. 2) Magnesium 1.7 Level mg/dl (1.7-2.5 ) Total 0.2 Bilirubin mg/dl (0.2-1.3 ) Direct 0.00 Bilirubin mg/dl (0.00-0. 20) Indirect 0.2 Bilirubin mg/dl (0-1.1) Aspartate Amino 14 Transf (AST/SGO IU/L (15-46) T) Alanine 23 Aminotransferas IU/L (13-69) e (ALT/SGPT) Alkaline 96 Phosphatase IU/L (42-121) Total Protein 6.4 g/dl (6.1-8.1) Albumin 3.9 g/dl (3.3-4.9) Globulin 2.50 g/dl (1.3-3.2) Albumin/Globuli 1.56 n Ratio Vitamin B12 245 Level pg/ml (239-931 ) Thyroid 2.070 Stimulating MIU/L (0.465-4 Hormone (TSH) .680) Test 11/09/18 08:23 11/09/18 12:03 Bedside 230 274 Glucose mg/dL (70-220) mg/dL (70-220) KERWIN SAVAGE MD Nov 09, 2018 16:38
--- NOTE | 2018-11-09 16:39 | PDOCDIS ---
Discharge Instructions CONDITION [id number] Patient Condition: [id number] Good HOME CARE INSTRUCTIONS: [id number] Special Diet: [id number] Carb controlled ACTIVITY: [id number] Activity Restrictions: [id number] Slowly Increase Activity Do not Drive [id number] Activity Restrictions [id number] Use walker as instructed. Comment: Consider obtaining a medical alert braclet. FOLLOW UP/APPOINTMENTS Follow-up Plan Appointment primary 1 week KERWIN SAVAGE MD Nov 09, 2018 16:39
[2018-11-09] MEDS ORDERED: DOCU-216 PO (16:43)
[2018-11-09] MEDS ORDERED: ACET325T33 PO (16:43)
[2018-11-09] MEDS ORDERED: BENA10TA4 PO (16:43)
--- NOTE | 2018-11-09 18:34 | NUR ---
Called Dr. Jimenez, clarify the order for CM consult, per MD can go home tonight. Per patient with In Home support in place, made MD aware.
--- NOTE | 2018-11-09 19:37 | NUR ---
Endorsed to night nurse, patient to D/C home today. D/C papers/Rx in the chart.
[2018-11-09] MEDS: ATORVASTATIN 20 MG TAB PO SCH (20:07)
[2018-11-09] MEDS: ROPINIROLE 1 MG TAB PO SCH (20:07)
[2018-11-09] MEDS ORDERED: BENAZEPRIL 10 MG TAB PO SCH (21:00)
--- NOTE | 2018-11-09 21:20 | NUR ---
Nursing Note: Patient discharged home in stable condition via wheelchair. Discharge instructions, prescriptions, and paperwork given. Pt verbalizes understanding. Pt a/o X4 on room air. IV removed. VS stable. Belongings with pt. Pt accompanied by family member.
== END 2018-11-09 21:20 | disposition home or self-care (01) | DRG 312 ==
LOC: E/R 13:23 → INTOOBSV 15:32 → TEL 15:32 → OBSVTOIN 11-07 14:01
PROVIDERS: ADMIT Internal Medicine; ATTEND Internal Medicine
DX: R55 Syncope and collapse (principal); C85.90 Non-Hodgkin lymphoma, unspecified, unspecified site; I48.91 Unspecified atrial fibrillation; Z95.0 Presence of cardiac pacemaker; E78.5 Hyperlipidemia, unspecified; I10 Essential (primary) hypertension; Z85.3 Personal history of malignant neoplasm of breast; E83.42 Hypomagnesemia; Z79.82 Long term (current) use of aspirin; R32 Unspecified urinary incontinence; E66.9 Obesity, unspecified; Z68.36 Body mass index [BMI] 36.0-36.9, adult; T50.905A Adverse effect of unspecified drugs, medicaments and biological substances, initial encounter; M17.12 Unilateral primary osteoarthritis, left knee; Z79.4 Long term (current) use of insulin
CPT/HCPCS: 36415; 70450; 71045; 80048; 80053; 82607; 82962; 83036; 83735; 84100; 84443; 84484; 85025; 85610; 85730; 93005; 93306; 93880; 97110; 97116; 97161; 97165; 97530; 99217; G0378; J1170; J1815; J3030; J3475; J7040